=== PATIENT | male | born 1940 | race Caucasian/White ===

== ENCOUNTER 2017-07-08 07:46 | Day surgery (SDC) | payer MEDICARE, OTHER, SELFPAY ==
--- NOTE | 2017-07-08 | PATH_ITS ---
[facility] Accession Number: [id number] . 01 Material submitted: . HEPATIC FLEXURE POLYP . 02 Diagnosis: Hepatic Flexure Polyp: Tubular adenoma. MRV/07/10/2017 . 02 Electronically signed: . Aquiles Jones MD, PhD, Pathologist NPI- [id number] . 01 Gross description: . HEPATIC FLEXURE POLYP: Received in formalin is 1 fragment(s) of garcia, soft tissue measuring 0.5 x 0.4 x 0.2 cm submitted entirely in 1 cassette(s) /TRC /TRC . 02 Pathologist provided ICD-10: D12.3 . 02 CPT . 667477 Performed at: 01 [facility] [address] [facility], [place], [place] [id number] MD Artem Quevedo MD Phone: [phone] Performed at: 02 [facility] [address] [place], [place] [id number] MD Robin Harris MD Phone: [phone]
[2017-07-08] MEDS: SODIUM CHLORIDE 0.9% 1,000 ML 200 ML IV (08:30)
[2017-07-08 08:32] VITALS: BP 120/74; PULSE 78; RESP 16; TEMP 36.1; O2SAT 97
--- NOTE | 2017-07-08 09:09 | PM.HP.1 ---
History of Present Illness Chief complaint: [id number] Narrative: Gio Peace is a 76 year old male He is here for screening colonoscopy. Last colonoscopy was about 10 years ago. No family history of colon cancer. No blood in his stool. PFSH Medical History Coronary artery disease (Acute) Elevated cholesterol (Acute) Lymphoma (Acute) Surgical History History of heart artery stent (Acute) Social History Smoking Status: Former smoker Tobacco: How many years used: 8 Meds Home Medications Medication Instructions Recorded Confirmed Type [CENTRIUM SILVER MULT] 1 tabs PO Q DAY #0 09/25/12 07/08/17 History aspirin 325 mg PO QDAY #0 09/25/12 07/08/17 History atorvastatin [Lipitor] 20 mg PO HS #0 09/25/12 07/08/17 History candesartan-hydrochlorothiazid 1 tab PO QDAY #0 03/22/16 07/08/17 History levothyroxine 0.088 mg PO QDAY #0 09/10/16 07/08/17 History docusate sodium [Colace] 100 mg PO BIDP PRN #0 12/12/16 07/08/17 History gabapentin [Neurontin] 1 - 2 tab PO HSP PRN 07/08/17 07/08/17 History Generic Name Dose Route Start Last Admin Trade Name Freq PRN Reason Stop Dose Admin Flumazenil 0.2 mg 07/08/17 07:50 Romazicon IV PRN PRN Benzodiazepine Reversal Sodium Chloride 1,000 mls @ 200 mls/hr 07/08/17 08:00 07/08/17 08:30 Normal Saline 0.9% IV 200 mls/hr CONT KAVON Administration Naloxone HCl 0.2 mg 07/08/17 07:50 Narcan IV Q2MIN PRN Opiate Reversal Allergies Allergy/AdvReac Type Severity Reaction Status Date / Time adhesive tape AdvReac Unknown RASH FROM Verified 07/08/17 08:16 PAPER TAPE PAPER TAPE AdvReac Unknown RASH Uncoded 05/28/17 12:24 Review of Systems Review of Systems All systems reviewed & are unremarkable except as noted in HPI and below Musculoskeletal Comments: Chronic back pain and hip pain Exam Vital Signs (past 8 hours): Vital Signs - 8 hr 07/08/17 08:32 Temperature 96.9 F L Pulse Rate 78 Respiratory Rate 16 Blood Pressure 120/74 Pulse Oximetry 97 Pulse Oximetry 97 Oxygen Delivery Method Room Air Assessment & Plan Plan: Plan: I have discussed the procedure and the rationale with the patient including risks of bleeding, perforation which would necessitate a major operation, failure to find remove all lesions and the potential to tattoo. They appeared to understand and wished to proceed.
--- NOTE | 2017-07-08 09:14 | P.HP_ITS ---
History of Present Illness Chief complaint: [id number] Narrative: Gio Peace is a 76 year old male He is here for screening colonoscopy. Last colonoscopy was about 10 years ago. No family history of colon cancer. No blood in his stool. PFSH Medical History Coronary artery disease (Acute) Elevated cholesterol (Acute) Lymphoma (Acute) Surgical History History of heart artery stent (Acute) Social History Smoking Status: Former smoker Tobacco: How many years used: 8 Meds Home Medications Medication Instructions Recorded Confirmed Type [CENTRIUM SILVER MULT] 1 tabs PO Q DAY #0 09/25/12 07/08/17 History aspirin 325 mg PO QDAY #0 09/25/12 07/08/17 History atorvastatin [Lipitor] 20 mg PO HS #0 09/25/12 07/08/17 History candesartan-hydrochlorothiazid 1 tab PO QDAY #0 03/22/16 07/08/17 History levothyroxine 0.088 mg PO QDAY #0 09/10/16 07/08/17 History docusate sodium [Colace] 100 mg PO BIDP PRN #0 12/12/16 07/08/17 History gabapentin [Neurontin] 1 - 2 tab PO HSP PRN 07/08/17 07/08/17 History Generic Name Dose Route Start Last Admin Trade Name Freq PRN Reason Stop Dose Admin Flumazenil 0.2 mg 07/08/17 07:50 Romazicon IV PRN PRN Benzodiazepine Reversal Sodium Chloride 1,000 mls @ 200 mls/hr 07/08/17 08:00 07/08/17 08:30 Normal Saline 0.9% IV 200 mls/hr CONT KAVON Administration Naloxone HCl 0.2 mg 07/08/17 07:50 Narcan IV Q2MIN PRN Opiate Reversal Allergies Allergy/AdvReac Type Severity Reaction Status Date / Time adhesive tape AdvReac Unknown RASH FROM Verified 07/08/17 08:16 PAPER TAPE PAPER TAPE AdvReac Unknown RASH Uncoded 05/28/17 12:24 Review of Systems Review of Systems All systems reviewed & are unremarkable except as noted in HPI and below Musculoskeletal Comments: Chronic back pain and hip pain Exam Vital Signs (past 8 hours): Vital Signs - 8 hr 3 07/08/17 08:32 Temperature 96.9 F L Pulse Rate 78 Respiratory Rate 16 Blood Pressure 120/74 Pulse Oximetry 97 Pulse Oximetry 97 Oxygen Delivery Method Room Air Assessment & Plan Plan: Plan: I have discussed the procedure and the rationale with the patient including risks of bleeding, perforation which would necessitate a major operation, failure to find remove all lesions and the potential to tattoo. They appeared to understand and wished to proceed.
--- NOTE | 2017-07-08 09:14 | PM.PREOP ---
Pre-operative Note Interval Note Pre-op Check: History & Physical exam performed today H&P completed within 30 days and has changed as indicated here:: No change ASA Class (for procedural sedation): II
[2017-07-08] MEDS: fentaNYL 250 MCG/5 ML INJ IV (09:25)
[2017-07-08] MEDS: MIDAZOLAM 5 MG/5 ML VIAL IV (09:26)
--- NOTE | 2017-07-08 09:46 | PM.OP.ENDO ---
Operative Date/Time/Diagnoses - Date of procedure: 07/08/17 Time of procedure: 09:46 Pre-op diagnosis: Screening examination. Last exam 10 years ago Post-op diagnosis: same (Orta diverticulosis. One very small polyp near the hepatic flexure.) Procedure & Clinicians Study performed: Colonoscopy with cold biopsy Same procedure as scheduled: Yes Indications: Screening Surgeon: Eldon Bruce Procedure Notes SCOAP/Timeout: Perfored Procedure in detail: The patient was placed in the left lateral decubitus position and underwent IV sedation directed by the surgeon consisting of fentanyl and Versed. Digital exam was unremarkable. Prostate is small for age.. The scope was inserted and advanced through the rectum into the sigmoid, descending, transverse, and ascending colon. I noted diverticulosis most heavily in the sigmoid but scattered through the colon.. The cecum was reached after adding a stiffener and applying pressure. It was identified by the ileocecal valve and the appendiceal opening. The ileocecal valve was[the not] cannulated. The scope was gradually brought out. Polyps were found at[the hepatic flexure area. It was small and removed with biopsy forceps.]. The scope ultimately was retroflexed in the rectum. The appearance was[normal in the rectum]. The scope was removed and the patient tolerated the procedure wellThe patient was placed in the left lateral decubitus position and underwent IV sedation directed by the surgeon consisting of fentanyl and Versed. Digital exam was unremarkable. Prostate is small for age.. The scope was inserted and advanced through the rectum into the sigmoid, descending, transverse, and ascending colon. I noted diverticulosis most heavily in the sigmoid but scattered through the colon.. The cecum was reached after adding a stiffener and applying pressure. It was identified by the ileocecal valve and the appendiceal opening. The ileocecal valve was[the not] cannulated. The scope was gradually brought out. Polyps were found at[the hepatic flexure area. It was small and removed with biopsy forceps.]. The scope ultimately was retroflexed in the rectum. The appearance was[]. The scope was removed and the patient tolerated the procedure well Scope withdrawal time: Over 9 min Sedation minutes: 29 Findings: diverticulosis (Orta colonic) and polyp (One small) Specimen(s): other (Polyp) Complications: none Recommendations: Colonscopy in 5 years (Under less than this polyp is not neoplastic. Then I would recommend a 10 year follow-up.) Plan for aftercare: Prep was adequate. [place] a liquid material had to be suctioned. Follow up: as needed (Bilateral air)
[2017-07-08 09:54] VITALS: BP 106/65; PULSE 72; RESP 15; TEMP 36.7
[2017-07-08 09:57] VITALS: BP 110/74; PULSE 73; TEMP 36.4
[2017-07-08 10:08] VITALS: BP 129/71; PULSE 69; RESP 16; TEMP 36.6; O2SAT 97
--- NOTE | 2017-07-08 10:16 | SUR.PHASEII ---
pt ready to go, getting car, left in stable condition.
== END 2017-07-08 10:15 | disposition home or self-care (01) ==
PROVIDERS: Family Provider Family Medicine; PCP Family Medicine; Visit Provider Specialist
PROC: 0DJD8ZZ Inspection of Lower Intestinal Tract, Via Natural or Artificial Opening Endoscopic (ICD-10-PCS; CPT 45378; principal; 2017-07-08 08:45)
DX: Z12.11 Encounter for screening for malignant neoplasm of colon (principal); K57.30 Diverticulosis of large intestine without perforation or abscess without bleeding; D12.3 Benign neoplasm of transverse colon; I25.10 Atherosclerotic heart disease of native coronary artery without angina pectoris; E78.00 Pure hypercholesterolemia, unspecified; Z87.891 Personal history of nicotine dependence
CPT/HCPCS: 45380; 88305; 99152; 99153; J2250; J3010

== ENCOUNTER → 2017-09-04 09:30 | Outpatient (CLI) | payer MEDICARE, OTHER, SELFPAY ==
[2017-09-04 09:53] LABS: Add Manual Diff / Slide Review NO; Basophils Percent Auto 0.9 % (0-2); Eosinophils Percent Auto 5.8 % (2-4); Hematocrit 44.1 % (41-53); Hemoglobin 15.5 g/dL (13.5-17.5); Lymphocytes Percent Auto 24.6 % (25-40); Mean Corpuscular HGB Conc 35.2 % (30-36); Mean Corpuscular Hemoglobin 32.4 PG (26-34); Mean Corpuscular Volume 92.2 fL (80-100); Monocytes Percent Auto 9.9 % (3-14); Neutrophils Absolute Auto 2900 /uL (3000-5900); Neutrophils Percent Auto 58.8 % (50-75); Platelet Count 161 X10^3/uL (150-400); Red Blood Cell Count 4.78 X10^6/uL (4.5-5.9)
[2017-09-04 10:05] LABS: Alanine Aminotransferase 25 IU/L (21-72); Albumin 4.4 g/dL (3.5-5.0); Albumin Globulin Ratio 1.8 (1.0-2.8); Alkaline Phosphatase 68 U/L (38-126); Aspartate Aminotransferase 22 IU/L (17-59); BUN Creatinine Ratio 26.7 (6-22); Blood Urea Nitrogen 24 mg/dL (9-20); Calcium 9.8 mg/dL (8.4-10.2); Carbon Dioxide 29 mmol/L (22-32); Chloride 103 mmol/L (98-107); Estimated Glomerular Filt Rate > 60.0 mL/min (>60); Globulin 2.4 g/dL (1.7-4.1); Glucose 94 mg/dL (80-110); HEMOLYSIS < 15 (0-50); Sodium 141 mmol/L (137-145); Total Protein 6.8 g/dL (6.3-8.2)
--- NOTE | 2017-09-04 10:18 | DI.CT.S_ITS ---
PROCEDURE: CT CHEST ABD PEL W CON INDICATIONS: B-Cell lymphoma surveillance TECHNIQUE: After the administration of oral and intravenous contrast, 5 mm thick sections acquired from the lung apices to the symphysis. 5 mm coronal and sagittal reformats were performed, with additional 7 mm coronal MIP reformats through the lungs. For radiation dose reduction, the following was used: automated exposure control, adjustment of mA and/or kV according to patient size. COMPARISON: [facility], CT, NECK/CHEST/ABD/PEL W CONTRAST, 12/06/2016, 9:49. FINDINGS: Image quality: Excellent. CHEST: Lungs and pleura: Stable dependent atelectasis. No acute airspace opacities. No pleural effusions or pneumothorax. Central and peripheral airways appear patent and normal in caliber. Mediastinum: Heart size is normal. No pericardial effusion. No mediastinal or hilar adenopathy by size criteria. Thoracic aorta and central pulmonary arteries are normal in size. Esophagus is normal in caliber. Mild/moderate hiatal hernia. Chest wall: No axillary or supraclavicular adenopathy by size criteria. Thyroid gland is radiographically normal. ABDOMEN: Solid organs: Multiple low density hepatic nodules stable since the previous study consistent with simple cysts. Decreased hepatic density most consistent with mild fatty infiltration. The gallbladder, pancreas, and adrenal glands are normal. Minimal nodular confirmation to the spleen with stable since the previous study. No splenic masses. Stable enlargement of the right renal collecting system consistent with UPJ stenosis.. Otherwise the kidneys are normal.. Peritoneum and bowel: Bowel loops demonstrate normal wall thickness and caliber. No free fluid or air. Nodes and vessels: No retroperitoneal or mesenteric adenopathy by size criteria. Aorta and inferior vena cava are normal in size. Miscellaneous: No ventral hernias. PELVIS: Genitourinary: Mild homogeneous bladder wall thickening. Prostatic hypertrophy. Please note CT cannot effectively identify or exclude primary prostate cancer. Miscellaneous: No inguinal hernias or adenopathy. Stable mild soft tissue thickening about the left external iliac and common femoral arteries. Bones: No suspicious bony lesions. No vertebral body compression fractures. IMPRESSION: 1. No lymphadenopathy to suggest residual or recurrent malignancy. 2. Stable soft tissue thickening about the left common femoral and external iliac arteries. 3. Moderate esophageal jelena hernia. Dictated by: Erwin Hackett M.D. on 09/04/2017 at 11:35 Approved by: Erwin Hackett M.D. on 09/04/2017 at 11:45
[2017-09-04 10:40] LABS: Lactate Dehydrogenase 507 U/L (313-618)
== END ==
PROVIDERS: Family Provider Family Medicine; PCP Family Medicine; Visit Provider Nurse Practitioner Gerontology
DX: C83.30 Diffuse large B-cell lymphoma, unspecified site (principal)
CPT/HCPCS: 36415; 71260; 74177; 80053; 83615; 85025; Q9967

== ENCOUNTER → 2018-02-05 15:42 | Outpatient (CLI) | payer MEDICARE, OTHER, SELFPAY ==
--- NOTE | 2018-02-05 | DI.MRI.S_ITS ---
PROCEDURE: MR LUMBAR SPINE WO CON INDICATIONS: LUMBAR SPINE PAIN TECHNIQUE: Noncontrast sagittal T1 spin echo and T2 fast echo, sagittal STIR, coronal T2, axial T1 and T2 fast spin echo through the lumbar spine. COMPARISON: [facility], , L-SPINE 2-3 VIEWS, 05/20/2012, 9:57. FINDINGS: Image quality: Excellent. Alignment and Curvature: 5 lumbar diverticulitis are present by plain film. There is moderate rightward curvature of the mid/upper lumbar spine. There is loss of normal lumbar lordosis. There is mild grade 1 retrolisthesis of L1 on L2, L3 on L4, and L5 on S1. Bone Marrow: Marrow is of normal overall signal. No acute vertebral body compression fractures. There is severe reactive signal within the endplates adjacent to the L1-L2 and L2-L3 intervertebral discs. Moderate reactive signal within the endplates adjacent to the L4-L5 and L5-S1 intervertebral discs. Mild reactive signal within the endplates adjacent to the T12-L1 intervertebral disc. Spinal Cord: Conus medullaris terminates at the mid L1 level. Visualized cord demonstrates normal signal and size. Paraspinous Soft Tissues: No paravertebral masses. Incompletely visualized right parapelvic renal cyst measuring at least 64 mm. L1-L2: Severe disc height loss and desiccation. Moderate diffuse disc bulge. Mild bilateral facet and ligamentum flavum hypertrophy. Mild epidural lipomatosis. Severe canal stenosis. Moderate subarticular left and mild subarticular right foraminal stenosis. L2-L3: The severe disc height loss and desiccation. Mild diffuse disc bulge. Moderate bilateral facet and ligamentum hypertrophy. Mild epidural lipomatosis. Severe canal stenosis. Moderate subarticular left and mild right foraminal stenosis. L3-L4: Moderate disc desiccation. Mild disc height loss. Moderate diffuse disc bulge. Moderate bilateral facet and ligamentum flavum hypertrophy. Mild epidural lipomatosis. Severe canal stenosis. Severe subarticular left and moderate subarticular right foraminal stenosis. Flattening deformity of the left L3 nerve root within the neural foramen. L4-L5: Moderate disc height loss and desiccation. Moderate diffuse disc bulge with superimposed right far lateral broad-based protrusion. Moderate bilateral facet and ligamentum flavum hypertrophy. Mild epidural lipomatosis. Severe canal stenosis. Severe subarticular right and mild left foraminal stenosis. Flattening deformity of the right L4 nerve root within the neural foramen. L5-S1: Severe disc height loss and desiccation. Mild diffuse disc bulge with superimposed broad-based right far lateral protrusion. Moderate right and mild left facet hypertrophy. Moderate canal stenosis. Severe subarticular right and moderate subarticular left foraminal stenosis. Flattening deformity of the right L5 nerve root within the neural foramen. IMPRESSION: 1.Multilevel degenerative disc and facet disease, as well as ligamentum flavum hypertrophy and epidural lipomatosis. 2. Multilevel canal stenoses, worst at L1-L2, L2-L3, L3-L4, and L4-L5, where there are severe canal stenoses present. 3. Multilevel foraminal stenoses, worst at L3-L4 on the left, at L4-L5 on the right, and L5-S1 on the right, where there is associated intraforaminal nerve root flattening of described above. Recommend correlation with clinical symptoms to ascertain relevance of these findings. 4. Rightward curvature of the lumbar spine. Dictated by: Griselda Mckay M.D. on 02/05/2018 at 16:49 Approved by: Griselda Mckay M.D. on 02/05/2018 at 16:55
== END ==
PROVIDERS: Family Provider Family Medicine; PCP Family Medicine; Visit Provider Orthopaedic Surgery Orthopaedic Surgery of the Spine
DX: M54.5 Low back pain (principal); M48.061 Spinal stenosis, lumbar region without neurogenic claudication; M48.07 Spinal stenosis, lumbosacral region; M51.36 Other intervertebral disc degeneration, lumbar region; M51.37 Other intervertebral disc degeneration, lumbosacral region; E88.2 Lipomatosis, not elsewhere classified
CPT/HCPCS: 72148

== ENCOUNTER → 2018-02-25 09:29 | Outpatient (CLI) | payer MEDICARE, OTHER, SELFPAY ==
[2018-02-25 10:07] LABS: Add Manual Diff / Slide Review NO; Basophils Percent Auto 0.7 % (0-2); Eosinophils Percent Auto 4.5 % (2-4); Hematocrit 40.4 % (41-53); Hemoglobin 13.5 g/dL (13.5-17.5); Lymphocytes Percent Auto 21.9 % (25-40); Mean Corpuscular HGB Conc 33.5 % (30-36); Mean Corpuscular Hemoglobin 27.9 PG (26-34); Mean Corpuscular Volume 83.3 fL (80-100); Monocytes Percent Auto 9.6 % (3-14); Neutrophils Absolute Auto 3700 /uL (1500-7000); Neutrophils Percent Auto 63.3 % (50-75); Platelet Count 200 X10^3/uL (150-400); Red Blood Cell Count 4.85 X10^6/uL (4.5-5.9); Red Cell Distribution Width 14.4 % (11.6-14.8); White Blood Cell Count 5.8 X10^3/uL (4.5-11.0)
[2018-02-25 10:16] LABS: Alanine Aminotransferase 30 IU/L (21-72); Albumin 4.4 g/dL (3.5-5.0); Albumin Globulin Ratio 1.6 (1.0-2.8); Alkaline Phosphatase 71 U/L (38-126); Aspartate Aminotransferase 23 IU/L (17-59); BUN Creatinine Ratio 23.3 (6-22); Bilirubin Total 0.5 mg/dL (0.2-1.3); Blood Urea Nitrogen 21 mg/dL (9-20); Calcium 9.9 mg/dL (8.4-10.2); Carbon Dioxide 29 mmol/L (22-32); Chloride 103 mmol/L (98-107); Estimated Glomerular Filt Rate > 60.0 mL/min (>60); Globulin 2.8 g/dL (1.7-4.1); Glucose 97 mg/dL (80-110); HEMOLYSIS < 15 (0-50); Lactate Dehydrogenase 425 U/L (313-618); Potassium 4.6 mmol/L (3.4-5.1); Sodium 143 mmol/L (137-145); Total Protein 7.2 g/dL (6.3-8.2)
--- NOTE | 2018-02-25 10:28 | DI.CT.S_ITS ---
PROCEDURE: CT CHEST ABD PEL W CON INDICATIONS: surveillance TECHNIQUE: After the administration of oral and intravenous contrast, 5 mm thick sections acquired from the lung apices to the symphysis. 5 mm coronal and sagittal reformats were performed, with additional 7 mm coronal MIP reformats through the lungs. For radiation dose reduction, the following was used: automated exposure control, adjustment of mA and/or kV according to patient size. COMPARISON: [facility], CT, ABDOMEN/PELVIS WITH CONTRAST, 03/14/2016, 12:58. [place], [place], PET NECK TO MID THIGH STD, 04/11/2016, 9:01. [place], [place], PET NECK TO MID THIGH STD, 07/03/2016, 13:14. [facility], CT, NECK/CHEST/ABD/PEL W CONTRAST, 12/06/2016, 9:49. [facility], CT, CT ABD PELVIS W CON, 08/08/2016, 11:48. [facility], CT, CT CHEST ABD PEL W CON, 09/04/2017, 10:14. FINDINGS: Image quality: Excellent. CHEST: Lungs and pleura: No acute airspace opacities. There are bibasilar scars/atelectasis. No pleural effusions or pneumothorax. Central and peripheral airways appear patent and normal in caliber. Mediastinum: Heart size is normal. No pericardial effusion. No mediastinal or hilar adenopathy by size criteria. Thoracic aorta and central pulmonary arteries are normal in size. Esophagus is normal in caliber. There is a large hiatal hernia. Chest wall: No axillary or supraclavicular adenopathy by size criteria. Thyroid gland is normal. ABDOMEN: Solid organs: Multiple small hepatic hypodensities are most likely cysts. Liver is normal in size and enhancement. Gallbladder is normal. Biliary system is non dilated. Pancreas enhances normally. Spleen is normal in size and enhancement. A 1.5 cm soft tissue nodule in the splenic hilum is noted, consistent with a splenule. No adrenal nodules. There is moderate right hydronephrosis with dilated right renal pelvis consistent with right UPJ obstruction. The appearance unchanged from the last exam. Kidneys demonstrate normal size and enhancement. Peritoneum and bowel: Bowel loops demonstrate normal wall thickness and caliber. No free fluid or air. Nodes and vessels: No retroperitoneal or mesenteric adenopathy by size criteria. Mild soft tissue fullness surrounding the left external iliac and common femoral arteries appears unchanged. Aorta and inferior vena cava are normal in size. Miscellaneous: No ventral hernias. PELVIS: Genitourinary: Bladder wall thickness is normal. Prostate is enlarged. Miscellaneous: No inguinal hernias or adenopathy. Bones: No suspicious bony lesions. No vertebral body compression fractures. IMPRESSION: 1. No lymphadenopathy in thorax, abdomen or pelvis. 2. Stable soft tissue fullness about the left external iliac and common femoral arteries. 3. Large hiatal hernia. 4. Chronic right UPJ obstruction. 5. Small hepatic hypodensities are likely hepatic cysts. 6. Enlarged prostate. Dictated by: Jeff Dougherty M.D. on 02/25/2018 at 12:24 Approved by: Jeff Dougherty M.D. on 02/25/2018 at 13:20
== END ==
PROVIDERS: Family Provider Family Medicine; PCP Family Medicine; Visit Provider Internal Medicine Hematology & Oncology
DX: C83.30 Diffuse large B-cell lymphoma, unspecified site (principal); K44.9 Diaphragmatic hernia without obstruction or gangrene; N13.5 Crossing vessel and stricture of ureter without hydronephrosis; N40.0 Benign prostatic hyperplasia without lower urinary tract symptoms
CPT/HCPCS: 36415; 71260; 74177; 80053; 83615; 85025; Q9967

== ENCOUNTER 2018-07-24 06:05 | Inpatient (IN) | payer MEDICARE, OTHER, SELFPAY ==
[2018-07-15 13:38] VITALS: BMI 33.6
[2018-07-24] VITALS (20 sets, daily range): BP systolic 89–122; BP diastolic 52–91; PULSE 71–95; RESP 1–20; TEMP 35.8–36.8; O2SAT 87–99; BMI 33.6
--- NOTE | 2018-07-24 | DI.RAD.S_ITS ---
PROCEDURE: XR LUMBAR SPINE 2-3V INDICATIONS: L3-4, 4-5, 5-S1 TLIF TECHNIQUE: 3 views of the lumbar spine were acquired. COMPARISON: [facility], , SPINE 2-3 VIEWS, 05/20/2012, 9:57. FINDINGS: Spot fluoroscopic images demonstrating lumbar spinal fixation hardware from L3-sacrum with paraspinal susi and pedicle screws. There are interbody cage grafts. There is expected intraoperative alignment. The hardware appears intact Dictated by: Gerard Snyder M.D. on 07/24/2018 at 15:06 Approved by: Gerard Snyder M.D. on 07/24/2018 at 15:07
[2018-07-24] MEDS: LACTATED RINGERS 1,000 ML 42 ML IV ×2 (07:00→09:59)
--- NOTE | 2018-07-24 07:26 | SUR.PREOP ---
PT HAS 1+ PITTING EDEMA ON RIGHT LOWER LEG, 2+ PITTING EDEMA ON LEFT LEG, PT STATES THIS IS FROM HIS LYMPHOMA , HAD CHEMO AND RADIATION 2017 AND IS NOW IN REMISSION.
[2018-07-24] MEDS: fentaNYL 100 MCG/2 ML INJ 50 MCG IV (07:37)
[2018-07-24] MEDS: CEFAZOLIN 2 GM/100 ML FROZ.PIGGY IV ×3 (07:45→20:19)
--- NOTE | 2018-07-24 07:45 | PM.PREOP ---
Pre-operative Note Interval Note History & Physical reviewed/Exam performed by Physician: Yes Changes to H&P: No
--- NOTE | 2018-07-24 08:27 | SUR.OPER ---
Prone on spine table, head in foam head support, padded chest and pelvic supports, gel pad at knees, lower legs supported by pillows; nipples, genitalia and toes free of pressure, arms secured on foam padded arm boards at <90 degrees abduction. Tape over blanket at thigh secured to table.
[2018-07-24] MEDS: BUPIVACAINE 0.25% W/ EPI 30 ML VIAL INJ (08:42)
[2018-07-24] MEDS: BUPIVACAINE LIPOSOME 266 MG/20 ML VIAL INJ (08:42)
--- NOTE | 2018-07-24 13:50 | PM.OP.1 ---
Operative Date/Time/Diagnoses Date of procedure: 07/24/18 Time of procedure: 07:50 Pre-op diagnosis: 1. Lumbar scoliosis 2. Lumbar spondylolisthesis 3. Lumbar spinal stenosis L3-S1 Post-op diagnosis: same Procedure & Clinicians Procedure: 1. L3-4, L4-5, L5-S1 Postero-lateral and posterior interbody fusion 2. L3-4, L4-5, L5-S1 interbody cage placement. 3. L3-4, L4-5, L5-S1 decompressive laminectomy with bilateral facetecomies 4. L3-4, L4-5, L5-S1 Posterior segmental instrumentation 5. [place] of bone marrow from iliac crest 6. Utilization of microsurgical technique and operating microscope Same procedure as scheduled: Yes Indications: Patient has been having chronic back pain and worsening lumbar radiculopathy. Patient failed multiple conservative management with worsening pain weakness and numbness in her lower extremity. Patient has been having difficulty performing activity of daily living. After discussing risks benefits of treatment options, patient elected proceed with surgery. Surgeon: Alcides Gilmore Asbestos Abatement Technician: Felisa Mejia Click Yes if Unassisted: No Anesthesia Type: General Operative Notes Closure Type: primary Specimen(s): none sent Prosthetic devices, grafts, tissues, transplants, or devices: Globus revolve screws, Rise cages Applied: catheter Estimated Blood Loss (mL): 350 Blood products transfused: none Procedure in detail: Patient was seen in the preoperative area. Risks and benefits of the surgery was discussed with the patient. Informed consent was obtained from the patient and placed in the chart. Surgical site was marked. Patient was taken to the operative room. General anesthesia was administered. Prophylactic antibiotic was given to the patient less than 30 min before the incision was made. Patient was placed into a prone position on the Cj table. Patient's back was then prepped and draped in the sterile fashion. Time-out was performed at this time. Using AP and lateral C-arm imaging the interval between L3-S1 was identified and marked on patient's back. A 3 inch incision 2 in from midline was made on the right side first. The fascia was incised in line with skin incision. Globus MARS retractors was placed inside the incision and docked onto the L3, L4 and L5 lamina. Using microsurgical technique and operating microscope, a L3, L4 and L5 laminectomy and L3-4, L4-5 L5-S1 facetectomy was performed using a Kerrison rongeur. The disc space at L3-4, L4-5, L5-S1 was identified. And a total diskectomy was performed at L3-4, L4-5, L5-S1 level. The endplates were decorticated using a rasp and shaver. The total diskectomy and decortication was performed at L3-4, L4-5, L5-S1 level in order to to accomplish a L3-4, L4-5, L5-S1 fusion. The local bone from the laminectomy and facetectomy was saved for local bone grafting. After the total diskectomy and decortication was completed, Bio4 bone graft material was combined with local bone that was harvested earlier. At this time, a separate skin is incision was made over the iliac crest. A Jamshidi needle was inserted into the iliac crest through a separate skin incision. 5 cc of bone marrow aspiration was obtained through the separate skin incision using a Jamshidi needle from the iliac crest. The bone marrow aspiration was combined with local bone and the Bio4 bone grafting material. The bone grafting material was placed into the L3-4, L4-5, L5-S1 interbody space along with three cages, one expandable cage at each level. The cages were expanded to their maximum height using the torque limiting screwdriver. At this time a mirror image incision was made on the left side. The fascia was incised in line with the skin incision. Globus MARS retractor was inserted and docked onto the L3-4, L4-5, L5-S1 posterolateral gutter. Using the power drill, posterior-lateral decortication was performed at L3-4, L4-5, L5-S1 level until bleeding cortical bone was identified. The remaining bone grafting material was placed into the L3-4, L4-5 L5-S1 posterior lateral gutter he order to accomplish posterolateral fusion at the L3-4, L4-5 L5-S1 levels. Using the double C-arm technique, pedicle screws were placed into the L3, L4, L5, S1 pedicles bilaterally. This was done by placing the Jamshidi needle into the pedicles, then placing the guidewires over the Jamshidi needle, and finally placing the cannulated screws over the guidewires bilaterally. After the pedicle screws were placed, 2 titanium rods was locked into the heads of the pedicle screws using locking caps and torque limiting screwdriver. Total 8 pedicles screws were placed. The pedicle screws were also tested using neuromonitoring probe and they were well positioned and above allowed threshhold. After all the hardware was placed, and confirmed with AP and lateral C-arm imaging, the wound was then irrigated with sterile normal saline and packed with Ray-Pepe gauze for 3 min to accomplish hemostasis. After the gauze was removed the deep fascia was closed with #1 Vicryl suture. The subcutaneous layer was closed with 2-0 Vicryl. The skin was closed with skin nunu. Patient tolerated the procedure well. There were no complications. Complications: none Condition: stable Disposition: PACU Plan for aftercare: Admit to inpatient hospital
--- NOTE | 2018-07-24 14:32 | SUR.PHASEI ---
Pt moaning, opening eyes and moving all extremities independently. Not answering questions.
[2018-07-24] MEDS: HYDROMORPHONE 2 MG INJ 0.5 MG IV ×4 (14:36→15:19)
[2018-07-24] MEDS: hydrOXYzine 50 MG/ML INJ 25 MG IM (14:40)
--- NOTE | 2018-07-24 15:41 | SUR.PHASEI ---
Dr. Min notified regarding pt apnea while dozing, sats drop to mid 80s. VVO for RT eval and treat for possible sleep apnea. Jitendra in RT notified. Report called to Daniel.
--- NOTE | 2018-07-24 16:03 | SUR.PHASEI ---
Pt transferred to the floor on o2 and with o2 monitor, with glasses and belongings bag. IV saline locked. DRSG checked with RN. BLE weak but LLE stronger than RLE. VS stable. Report to Daniel
--- NOTE | 2018-07-24 16:35 | PT.IPTN ---
Current Diagnoses Other secondary scoliosis, lumbar region (07/24/18) Spondylolisthesis, lumbar region (07/24/18) Spinal stenosis, lumbar region without neurogenic claudication (07/24/18) Surgery Performed Operation Date: 07/24/18 07:45 Actual Procedures p L3-4, L4-5, L5-S1 TLIF w/Posterior Instru. - Alcides Gilmore MD Physical Therapy Treatment Note M3 PT-IP Subjective Start: 07/24/18 16:33 Freq: NEEDED Status: Active Protocol: Document 07/24/18 16:33 AB (Rec: 07/24/18 16:35 AB [id number]) Subjective Physical Therapy Visit Type Notes talked to nurse and stated that pt just came up to the acute floor and is very sleepy . checked on pt. family in room. pt falling asleep while PT is talking to him and spouse agreed that it is better to do PT tomorrow.
[2018-07-24] MEDS: SODIUM CHLORIDE 0.9% 1,000 ML 100 ML IV (17:09)
[2018-07-24] MEDS: ATORVASTATIN 20 MG TABLET PO (20:18)
[2018-07-24] MEDS: OXYCODONE IR 10 MG TABLET PO (20:18)
[2018-07-24] MEDS: DOCUSATE 100 MG CAPSULE PO (20:18)
[2018-07-24] MEDS: GABAPENTIN 300 MG CAPSULE PO (20:18)
[2018-07-24] MEDS: SENNOSIDES 8.6 MG TABLET 17.2 MG PO (20:19)
[2018-07-25] VITALS (8 sets, daily range): BP systolic 92–143; BP diastolic 52–70; PULSE 82–88; RESP 16–20; TEMP 36.3–37.3; O2SAT 94–100
[2018-07-25] MEDS: CEFAZOLIN 2 GM/100 ML FROZ.PIGGY IV (03:35)
[2018-07-25] MEDS: SODIUM CHLORIDE 0.9% 1,000 ML 100 ML IV (03:35)
[2018-07-25] MEDS: LEVOTHYROXINE 88 MCG TABLET PO (05:18)
[2018-07-25 05:27] LABS: Hematocrit 30.8 % (41-53)
[2018-07-25] MEDS: hydrOXYzine pamoate 25 MG CAPSULE PO ×3 (07:25→20:25)
[2018-07-25] MEDS: HYDROMORPHONE 0.5 MG INJ IV (07:25)
--- NOTE | 2018-07-25 09:47 | PM.PNPO.1 ---
Subjective Date Patient Seen: 07/25/18 Time Patient Seen: 09:48 Interval history: Patient is POD#1 s/p TLIF. He reports minimal pain while lying in bed but quickly becomes severe with movement. He has not yet mobilized with PT. Urinary catheter in place. Denies chest pain, shortness of breath. Exam Vital Signs (past 8 hours): - 07/25/18 04:09 07/25/18 07:20 07/25/18 09:07 Temperature 97.5 F L 97.4 F L Pulse Rate 84 87 Respiratory Rate 19 16 Blood Pressure 108/61 115/65 Pulse Oximetry 98 100 98 07/25/18 09:08 Temperature Pulse Rate Respiratory Rate Blood Pressure Pulse Oximetry 95 Oxygen Delivery Method Room Air Oxygen Flow Rate 2 Narrative Exam Narrative: Pleasant 77 year old male resting comfortably in bed in no acute distress. Alert and oriented. Dressing in place over lumbar spine is clean, dry, and intact with no shadow drainage. Intact motor and sensation to light touch in distal extremities. Good capillary refill. Objective Labs Result Diagrams: 07/25/18 04:57 Labs: Laboratory Results - last 24 hr 07/25/18 04:57 Hgb 10.0 L Hct 30.8 L Assessment & Plan Post-op Postoperative Procedures Operation Date: 07/24/18 07:45 Actual Procedures Side Surgeon p L3-4, L4-5, L5-S1 TLIF w/Posterior Instru. Alcides Gilmore MD Patient doing well post operatively. Goals for today are to mobilize with PT and to have more consistent pain control. Added oxycodone 5mg for moderate pain to better meet pain control goals and recommend to patient to take medication when pain is moderate. Possible d/c catheter today if he is able to mobilize with PT, otherwise will remove tomorrow. Quality VTE Deep Vein Thrombosis/Pulmonary Embolism Present on Admission: No
[2018-07-25] MEDS: OXYCODONE IR 10 MG TABLET PO ×3 (09:52→20:22)
[2018-07-25] MEDS: DOCUSATE 100 MG CAPSULE PO ×2 (09:55→20:23)
--- NOTE | 2018-07-25 11:10 | PT.IIE ---
Current Diagnoses Other secondary scoliosis, lumbar region (07/24/18) Spondylolisthesis, lumbar region (07/24/18) Spinal stenosis, lumbar region without neurogenic claudication (07/24/18) Surgery Performed Operation Date: 07/24/18 07:45 Actual Procedures p L3-4, L4-5, L5-S1 TLIF w/Posterior Instru. - Alcides Gilmore MD Surgical History (Last Updated 07/16/18 @ 09:35 by Radha Rayo, RN) History of colonoscopy (Acute) Hx of tonsillectomy (Acute) History of heart artery stent (Acute ~12/2004) Medical History (Last Updated 07/15/18 @ 14:16 by Radha Rayo RN) Back pain (Acute) Former smoker (Acute) [place] (hard of hearing) (Acute) Hypothyroid (Acute) Left leg swelling (Acute) Myocardial infarction (Acute ~12/2004) Numbness (Acute) RLS (restless legs syndrome) (Acute) Sciatica (Acute) Coronary artery disease (Acute) Elevated cholesterol (Acute) Lymphoma (Acute ~02/2016) Physical Therapy Inpatient Evaluation/Re-Eval M1 PT/OT-IP Prior Functional Status Start: 07/24/18 16:33 Freq: NEEDED Status: Active Protocol: Document 07/25/18 11:10 RCC (Rec: 07/25/18 11:58 [facility] [id number]) Medical Review Prior Functional Status Medical History Reviewed Yes Mobility and Gait mod indep gait without device Activities of Daily Living and IADL's mod indep I/ADLs Social History Household Members spouse Living Arrangements House Number of Floors (Floors) One Floor Number of Stairs To Enter/Railing? 2 SE L ascending rail Home Environment Walk in Shower Home Equipment Four Wheel Walker Grab Bars Near Toilet Grab Bars In Shower Additional Social History Comment Pt underwent L3-4, L4-5, L5-S1 TLIF 07/24/18 M2 PT-IP Current Condition Start: 07/24/18 16:33 Freq: NEEDED Status: Active Protocol: Document 07/25/18 11:10 RCC (Rec: 07/25/18 11:58 [facility] [id number]) Physical Therapy Current Condition Current Condition Evaluation Date 07/25/18 Treatment Diagnosis L3-4, L4-5, L5-S1 TLIF 07/24/18, impaired activity tolerance and mobility Precautions Lumbar Precautions Log Roll No Twisting Limit Bending Lifting Restriction of 10 lbs Gait Belt above Incisional Area M3 PT-IP Subjective Start: 07/24/18 16:33 Freq: NEEDED Status: Active Protocol: Document 07/25/18 11:10 [facility] (Rec: 07/25/18 11:58 [facility] [id number]) Subjective Physical Therapy Visit Type Type Initial Evaluation Visit Start Time 11:10 Visit Stop Time 11:35 Total Visit Minutes 25 Number of PATTERN FITTER Visits 0 Physical Therapy Visit Comments Patient Comments Pt feeling better after pain medication and laying on his side Patient Goals he wants to get his pain under control Therapy Pain Assessment Pain When Pain Assessed At Rest Pain Present Pain Present Pain Reported Location Lower Back Intensity 4 Scale Used Numeric (1 - 10) M4 PT-IP Mobility and Gait Start: 07/24/18 16:33 Freq: NEEDED Status: Active Protocol: Document 07/25/18 11:10 [facility] (Rec: 07/25/18 11:58 [facility] [id number]) PT-Bed Mobility Assessment Rolling Type of Rolling Log Rolling Level of Assist Minimal Assistance Supine to Sit Supine to Sit Minimal Assistance Scooting Scooting to Edge of Bed Contact Guard Assistance PT-Transfer Assessment Sit to and From Stand Sit to and from Stand Contact Guard Assistance 1 Person Assistance Use of Upper Extremities Equipment Transfer Assistive Device Gait Belt Front Wheeled Walker Transfers Transfer Destination Chair Transfer Technique Stand Step Pivot Transfer Ability Level of Assist Contact Guard Assistance Gait Assessment Gait Gait Assistance Required: Contact Guard Assist Distance (Feet) 25 Assistive Devices Assistive Device Gait Belt Front Wheeled Walker Gait Deviations General Gait Pattern Antalgic Decreased Stride Length Decreased Feet Clearance Factors Limiting Gait Function Factors Limiting Gait Function Decreased Activity Tolerance Decreased Sensation Decreased Strength Pain Poor Balance PT-Balance Assessment Sitting Balance and Reactions Static Sitting Balance Ability Good Dynamic Sitting Balance Ability Good Standing Balance and Reactions Static Standing Balance Ability Fair Dynamic Standing Balance Ability Fair Device Used FWW M5 PT-IP Objective Assessments Start: 07/24/18 16:33 Freq: NEEDED Status: Active Protocol: Document 07/25/18 11:10 [facility] (Rec: 07/25/18 11:58 [facility] [id number]) Orientation Orientation/Cognition Level of Alertness Alert Orientation Name Age Birthday Month Date Year Day of Week Place Situation Gross Range of Motion Lower Extremity ROM Assessment Within Functional Limits Strength Lower Extremity Strength Ankle DF 5/5 B Coordination Assessment Gross Coordination Gross Coordination WNL Sensation Assessment Sensation Gross Sensation Right LE Impaired Left LE Impaired Comments Sensation Comments pt reports numbness B lower legs and feet d/t CA treatment per pt M6 PT-IP Treatment Start: 07/24/18 16:33 Freq: NEEDED Status: Active Protocol: Document 07/25/18 11:10 RCC (Rec: 07/25/18 11:58 [facility] [id number]) Physical Therapy Treatment Exercises Exercises Ankle Pumps Education Education Provided Precautions Post-Op Packet Safety M7 PT-IP Assessment and Plan Start: 07/24/18 16:33 Freq: NEEDED Status: Active Protocol: Document 07/25/18 11:10 RCC (Rec: 07/25/18 11:58 [facility] [id number]) PT Summary Assessment and Plan Potential Rehabilitation Potential Good Status of Condition at Evaluation Stable Summary Impairments Pain Strength Balance Sensation Bed Mobility Transfers Gait Activity Tolerance Assessment Summary POD #1 TLIF. Pt able to ambulate in room without loss of balance x25 ft. He had decrease in pain in standing compared to in bed. Overall, pt is not yet safe to return home, but if he continues to progress he potentially could d/c once he meets the established goals. Expect pt to be able to return home when medically stable, with assistance from family. Goals Bed Mobility Goal Standby Assistance Transfer Goal Standby Assistance Gait Goal Standby Assistance Gait Distance 150 Other Goals up/down 2 steps with L ascending Days to Meet Goals 5 Frequency of Treatment Frequency Of Treatment Twice a Day Treatment Plan Physical Therapy Treatment Plan Bed Mobility Training Transfer Training Gait Training Balance Retraining Post Op Education Discharge Planning Hot or Cold Pack Neuromuscular Re-ed Other Recommendations and Next Treatment log roll, review precautions, Focus progress gait Recommendations To Nursing Amount of Assist Needed 1 Person Assist Discharge Recommendations PT Discharge Recommendations Home with Assistance Equipment Needed for Home Before may need FWW if 4WW not Discharge appropriate
--- NOTE | 2018-07-25 11:32 | CM.DANOTE ---
DCP/Assessment: Reviewed chart. Patient is a 77yr old male admitted to [facility] for spinal fusion performed on 07-24-[address] Gilmore. PCP is Dr. Mcadams. Primary payor is 1)Medicare 2)[facility]. Met with patient explained CM/SW role. Patient resting comfortably in bed, alert and oriented. Patient reports that he plans to d/c home when medically stable. Patient resides with spouse/Jeanie and has additional family coming to assist from out of town for a few weeks. Patient currently with therapy evaluation pending. Prior to admit patient completely I in all ADL's. Patient has both cane/walker at home. P: Anticipate home when stable. ABIGAIL Kuhn Discharge Planning/Care Management CM Discharge Assessment Start: 07/25/18 11:29 Freq: Status: Active Protocol: Document 07/25/18 11:29 KJS (Rec: 07/25/18 11:32 KJS [id number]) Discharge Planning Assessment Assigned Information Security Officer ABIGAIL Kuhn Advance Directives? Yes: Advanced Directive, Durable Power of Manager Policy History Provided By Patient Medical Record Prior Living Arrangements House Household Members spouse Type of transporation used prior to Drives own vehicle admit Independent with ADL's Yes Is patient alert and oriented? Yes Caregiver for Another No DME Already Rented / Owned FWW / Walker Cane Barriers to Discharge No Discharge Plan Home Transportation Arrangement Family to provide transport when medically stable. Additional Comment Therapy evaluation pending. Whiteboard Updated in Patient Room with Yes name and ext. # of Information Security Officer Review Status In Process Next Review Type Continued Stay Review Pre-Anesthesia Assessment Start: 07/15/18 13:38 Freq: Status: Complete Protocol: Document 07/15/18 13:38 CAB (Rec: 07/15/18 15:02 CAB [id number]) Pre-Anesthesia Assessment Patient Also Known As (AKA) Rich Patient Information Reviewed Via Phone Assessment Assessment Completed With Patient Diagnostic Results BMP/CMP CBC EKG Comment Outside labs/EKG scanned to record Primary Care Provider Aung Mcadams Seen Specialist in Last 12 Months Yes Specialist Seen Call Or Contact Centre Coach Oncologist Orthopedist Primary Language Chinese Farm Service Adviser Required No Height 182.88 cm Weight 112.491 kg Body Mass Index (BMI) 33.6 Hearing Ability Hard of Hearing Use of Hearing Aid Visual Assist Glasses Dentition Type Teeth, Natural Present Barriers to Learning None Other Aids No Hx Anesthesia Reactions No Hx Family Anesthesia Reaction No Hx Malignant Hyperthermia No Hx Blood Transfusions No Anesthesia Review Requested Yes: Surgeon requested re: Cardiac Ward Assistant No alcohol intake current alcohol intake frequency 0-2 drinks per day Smoking Status Former smoker Tobacco type cigarettes how long ago did patient quit smoking Quit 1966 Substance Use Type does not use Pain Present Pain Reported Musculoskeletal Symptoms Abnormal Gait Back Pain Difficulty Walking Limited Range of Motion Muscle Cramps Muscle Weakness Numbness History of Falling (Recent or History of No ) Patient is completely paralyzed or No completely immobile Mental Status Oriented to own ability Is patient on oxygen? No Does patient have ORELLANA/SOB No Hx Sleep Apnea No CPAP/BIPAP use not prescribed Currently Taking a Beta Madeleine No Hx Chest Pain No Hx SOB No Hx Syncope or Dizziness No Anti-Coagulant Therapy Yes: Aspirin 325mg daily for stent Has a Call Or Contact Centre Coach Yes: Dr. Fagan - pre-op Cardiac Testing No Hx Pacemaker/ICD No Pacemaker Rep Required? No Cardiac Clearance Received Yes Comment Cardiac records scanned to record Diet Type At Home Regular dysphagia No Bladder Pattern Nocturia Urinary Catheter Present No Hx Urinary Self Catheterization No Diabetes No Hx Drug Resistant Organism No Presence of External or Internal Medical Yes: Cardiac stent, hearing Devices aids Have you traveled outside the [facility] in the last 30 days? Comment [place] 05/2017 Marital Status Lives With spouse Prior Living Arrangements House Number of Floors (Floors) One Floor Support System Spouse Does the Patient Have Assistance After Yes Surgery Patient Discharge Plan Description Return Home Comment Pt advised 2-3 day length of stay per surgeon's office Feels Safe in Current Environment Yes Been Physically Hurt or Threatened By a No Person in Current Environment Do you have thoughts of harming yourself None or others? Are you currently considering suicide? No Do you have a plan to hurt yourself or No Plan others? Do You Have Any Spiritual Beliefs That No May Affect Your HC Choices? Do You Have Any Cultural Practices That No May Affect Your HC Choices? Spiritual Referral In-House Artificial Breeding Technician Comment [employer] Who Can We Speak to About Patient's Care Family, friends Identifying Code for Release of Patient Declines to issue Information Health Care Proxy/Next of Kin Jeanie () Health Care Proxy Emergency Contact Name Jeanie () Emergency Contact Advance Directives? Yes: Advanced Directive, Durable Power of Manager Policy Power of Manager Policy Yes Power of Manager Policy Name Mary Kobi Power of Manager Policy PAC Instructions Durable medical equipment Medications to take/avoid Nasal antibiotic No ETOH/petroleum product on skin DOS NPO Post-op transportation Pre-surgical wash Sensory aids Sturdy shoes/comfortable clothes Do not bring valuables and remove jewelry
--- NOTE | 2018-07-25 12:39 | PC.NURSE ---
Addendum entered by Gissell Mast R.N. 07/25/18 13:27: Ambulating in halls with PT. Family brought in personal walker. Original Note: AM Shift pt AOx4, pleasant and receptive to care. [place] draining to gravity, NS infusion at 100/hr. pt removed from continuous pulse ox and capnography at 1000 per protocol and okayed by RT. O2 95% RA, all other VS stable, hypoactive bowel tones, but hasn't ate since night. Reported a 2/10 pain at start of shift, increased to 9/10 quickly and administered Dilaudid 0.5mg IV AT 0723. Pain decreased, but held at 5/10 and administered 10mg oxycodone at 0950 knowing PT would be working with pt for the first time. pain currently around 4/10. Up 1PA-FWW with PT. Verbal orders from REGAN Adam to remove [place] once pt is up and tolerating ambulation; will continue to monitor pain with transfer in hopes to remove this shift, or will relay to evening shift. LLE edema at baseline from 2017 lymphoma/lymphectomy.
--- NOTE | 2018-07-25 13:10 | PT.IPTN ---
Current Diagnoses Other secondary scoliosis, lumbar region (07/24/18) Spondylolisthesis, lumbar region (07/24/18) Spinal stenosis, lumbar region without neurogenic claudication (07/24/18) Surgery Performed Operation Date: 07/24/18 07:45 Actual Procedures p L3-4, L4-5, L5-S1 TLIF w/Posterior Instru. - Alcides Gilmore MD Physical Therapy Treatment Note M2 PT-IP Current Condition Start: 07/24/18 16:33 Freq: NEEDED Status: Active Protocol: Document 07/25/18 11:10 [facility] (Rec: 07/25/18 11:58 [facility] [id number]) Physical Therapy Current Condition Current Condition Evaluation Date 07/25/18 Treatment Diagnosis L3-4, L4-5, L5-S1 TLIF 07/24/18, impaired activity tolerance and mobility Precautions Lumbar Precautions Log Roll No Twisting Limit Bending Lifting Restriction of 10 lbs Gait Belt above Incisional Area M3 PT-IP Subjective Start: 07/24/18 16:33 Freq: NEEDED Status: Active Protocol: Document 07/25/18 13:10 [facility] (Rec: 07/25/18 14:43 [facility] [id number]) Subjective Physical Therapy Visit Type Type Treatment Note Visit Start Time 13:10 Visit Stop Time 13:25 Total Visit Minutes 15 Number of STENCIL INSPECTOR Visits 0 Physical Therapy Visit Comments Patient Comments family brought in pt's 4WW M4 PT-IP Mobility and Gait Start: 07/24/18 16:33 Freq: NEEDED Status: Active Protocol: Document 07/25/18 13:10 [facility] (Rec: 07/25/18 14:43 [facility] [id number]) PT-Transfer Assessment Sit to and From Stand Sit to and from Stand Contact Guard Assistance Equipment Transfer Assistive Device Gait Belt 4 Wheeled Walker Transfers Transfer Destination Chair Transfer Technique Stand Step Pivot Transfer Ability Level of Assist Contact Guard Assistance Gait Assessment Gait Gait Assistance Required: Contact Guard Assist Distance (Feet) 75 Assistive Devices Assistive Device Gait Belt 4 Wheeled Walker Gait Deviations General Gait Pattern Antalgic Decreased Stride Length Decreased Feet Clearance Factors Limiting Gait Function Factors Limiting Gait Function Decreased Activity Tolerance Decreased Sensation Pain M5 PT-IP Objective Assessments Start: 07/24/18 16:33 Freq: NEEDED Status: Active Protocol: Document 07/25/18 11:10 [facility] (Rec: 07/25/18 11:58 [facility] [id number]) Orientation Orientation/Cognition Level of Alertness Alert Orientation Name Age Birthday Month Date Year Day of Week Place Situation Gross Range of Motion Lower Extremity ROM Assessment Within Functional Limits Strength Lower Extremity Strength Ankle DF 5/5 B Coordination Assessment Gross Coordination Gross Coordination WNL Sensation Assessment Sensation Gross Sensation Right LE Impaired Left LE Impaired Comments Sensation Comments pt reports numbness B lower legs and feet d/t CA treatment per pt M6 PT-IP Treatment Start: 07/24/18 16:33 Freq: NEEDED Status: Active Protocol: Document 07/25/18 13:10 [facility] (Rec: 07/25/18 14:43 [facility] [id number]) Physical Therapy Treatment Exercises Exercises Ankle Pumps Education Education Provided Precautions M7 PT-IP Assessment and Plan Start: 07/24/18 16:33 Freq: NEEDED Status: Active Protocol: Document 07/25/18 13:10 [facility] (Rec: 07/25/18 14:43 [facility] [id number]) PT Summary Assessment and Plan Summary Assessment Summary POD #1 TLIF. Pt able to progress his gait distance and does appear to be safe to use his 4WW for gait upon d/c (he demonstrated good safety awareness and posture without stooping). Pt will need to improve upon his log roll and perform stair training prior to d/c. Goals Bed Mobility Goal Standby Assistance Transfer Goal Standby Assistance Gait Goal Standby Assistance Gait Distance 150 Other Goals up/down 2 steps with L ascending Days to Meet Goals 5 Frequency of Treatment Frequency Of Treatment Twice a Day Treatment Plan Other Recommendations and Next Treatment log roll, stairs Focus Recommendations To Nursing Amount of Assist Needed 1 Person Assist Discharge Recommendations PT Discharge Recommendations Home with Assistance Equipment Needed for Home Before okay to use 4WW at home Discharge
--- NOTE | 2018-07-25 17:12 | PC.NURSE ---
Addendum entered by Munira Yates R.N. 07/25/18 23:39: 16 fr honeycutt inserted without difficulty. Immediate return eduardo colored urine. Addendum entered by Munira Yates R.N. 07/25/18 22:32: SEWING MACHINE ASSEMBLER assists pt back into bed. Bladder scanned for 532 cc's and pt reports unable to void. Notified Dr. Taveras via telephone and received order to re-insert honeycutt catheter. Pt was informed. Addendum entered by Munira Yates R.N. 07/25/18 20:32: Pt requests assistance into bathroom to attempt void. Distal aspect of coversite dressings to back are rolling up; incisions still covered. Reinforced with single coversite dressing. Pt unable to void in bathroom. Bladder scanned for 220 cc/s. Encourage oral fluids and continue to monitor. Held evening bp meds for bp 104/68 with hr 88. Pt informed. Medicated for back/incisional pain associated with movement. Addendum entered by Munira Yates R.N. 07/25/18 17:28: Pt now has visitors in room. Remains up in recliner and reports pain meds are beginning to take effect. Verbally engaged with visitors. Good appetite for evening meal. Original Note: Pt awake, alert up in chair @ beginning of shift. Honeycutt catheter dc'd as per pt request. Urinal provideed and encouraged pt to call for staff assistance when needing/desiring out of chair. Medicated for back pain 6/10 as per emar. Taking diet well. Admits to full sensation to BL LE's. Pt reports h/o lymphoma to LLE and edema is baseline.
[2018-07-25] MEDS: ATORVASTATIN 20 MG TABLET PO (20:23)
[2018-07-25] MEDS: GABAPENTIN 300 MG CAPSULE PO (20:23)
[2018-07-25] MEDS: SENNOSIDES 8.6 MG TABLET 17.2 MG PO (20:24)
[2018-07-25] MEDS: MULTIVIT,CALC,MINS/IRON/FOLIC 1 TABLET 1 TAB PO (20:25)
[2018-07-25] MEDS: SODIUM CHLORIDE 0.9% FLUSH 10 ML IV (20:29)
[2018-07-26] VITALS (8 sets, daily range): BP systolic 86–133; BP diastolic 48–65; PULSE 81–106; RESP 12–18; TEMP 36.5–37.5; O2SAT 93–98
[2018-07-26] MEDS: OXYCODONE IR 10 MG TABLET PO (01:53)
[2018-07-26] MEDS: hydrOXYzine pamoate 25 MG CAPSULE PO (05:11)
[2018-07-26] MEDS: LEVOTHYROXINE 88 MCG TABLET PO (05:17)
[2018-07-26] MEDS: SODIUM CHLORIDE 0.9% FLUSH 10 ML IV ×4 (06:09→21:02)
[2018-07-26] MEDS: SODIUM CHLORIDE 0.9% 500 ML 1000 ML IV (06:10)
--- NOTE | 2018-07-26 06:49 | PC.NURSE ---
0600 Dr. Perez notified that pt. was hypotensive B/P 90/ & 86/52 second checked. Order received to bolus with 500 cc NS. Bolus completed & B/P now is 102/48. Declined pain medication @ this time, will cont. to monitor.
--- NOTE | 2018-07-26 09:35 | PM.PNPO.1 ---
Subjective Date Patient Seen: 07/26/18 Time Patient Seen: 09:35 Interval history: 77-year-old gentleman postoperative day [address] Gilmore. Patient doing well this morning. 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 His blood pressures been stable since that isolated incident. Throughout his postoperative course he has had 2 other episodes of hypotension. Rest of his vitals have been stable throughout. Patient has good pain control while laying in bed. Does state that he still gets quite a bit of pain when he tries to move or get out of bed. Due to difficulty urinating on his own his [place] had to be replaced. That will be removed later today Exam Vital Signs (past 8 hours): - 07/26/18 06:08 07/26/18 06:47 07/26/18 07:25 Temperature 98.1 F 97.7 F Pulse Rate 86 81 105 H Respiratory Rate 12 18 Blood Pressure 86/52 L 102/48 L 109/65 Pulse Oximetry 95 98 Oxygen Delivery Method Room Air Oxygen Flow Rate 2 Narrative Exam Narrative: On physical exam, patient is alert and oriented x3. No apparent distress. Patient's dressing is clean, dry, and intact. Positive dorsiflexion plantar flexion of the toes and ankle. 5/5 strength in extensor hallucis longus. Palpable pedal pulses as well as brisk cap refill. Nontender to palpation to bilateral calves. Objective Labs Result Diagrams: 07/25/18 04:57 Assessment & Plan Post-op Postoperative Procedures Operation Date: 07/24/18 07:45 Actual Procedures Side Surgeon p L3-4, L4-5, L5-S1 TLIF w/Posterior Instru. Alcides Gilmore MD Postoperative day: 2 Postoperative status: doing well Postoperative status narrative: Patient is slowly making improvements after spinal surgery on the . We will continue with physical therapy and mobilizing the patient. Will also continue to monitor his blood pressure. Plan on discharge home tomorrow. Postoperative plan: routine post-op care Time Spent With Patient less than 15 minutes Quality VTE Deep Vein Thrombosis/Pulmonary Embolism Present on Admission: No
--- NOTE | 2018-07-26 09:40 | P.PN_ITS ---
Subjective Date Patient Seen: 07/26/18 Time Patient Seen: 09:35 Interval history: 77-year-old gentleman postoperative day [address] Gilmore. Patient doing well this morning. 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 His blood pressures been stable since that isolated incident. Throughout his postoperative course he has had 2 other episodes of hypotension. Rest of his vitals have been stable throughout. Patient has good pain control while laying in bed. Does state that he still gets quite a bit of pain when he tries to move or get out of bed. Due to difficulty urinating on his own his [place] had to be replaced. That will be removed later today Exam Vital Signs (past 8 hours): - 07/26/18 06:08 07/26/18 06:47 07/26/18 07:25 Temperature 98.1 F 97.7 F Pulse Rate 86 81 105 H Respiratory Rate 12 18 Blood Pressure 86/52 L 102/48 L 109/65 Pulse Oximetry 95 98 Oxygen Delivery Method Room Air Oxygen Flow Rate 2 Narrative Exam Narrative: On physical exam, patient is alert and oriented x3. No apparent distress. Patient's dressing is clean, dry, and intact. Positive dorsiflexion plantar flexion of the toes and ankle. 5/5 strength in extensor hallucis longu s. Palpable pedal pulses as well as brisk cap refill. Nontender to palpation to bilateral calves. Objective Labs Result Diagrams: 07/25/18 04:57 Assessment & Plan Post-op Postoperative Procedures Operation Date: 07/24/18 07:45 Actual Procedures Side Surgeon p L3-4, L4-5, L5-S1 TLIF w/Posterior Instru. Alcides Gilmore MD Postoperative day: 2 Postoperative status: doing well Postoperative status narrative: Patient is slowly making improvements after spinal surgery on the . We will continue with physical therapy and mobilizing the patient. Will also continue to monitor his blood pressure. Plan on discharge home tomorrow. Postoperative plan: routine post-op care Time Spent With Patient less than 15 minutes Quality VTE Deep Vein Thrombosis/Pulmonary Embolism Present on Admission: No
[2018-07-26] MEDS: DOCUSATE 100 MG CAPSULE PO ×2 (10:14→21:01)
[2018-07-26] MEDS: OXYCODONE IR 5 MG TABLET PO ×5 (10:14→21:00)
--- NOTE | 2018-07-26 10:15 | PT.IPTN ---
Current Diagnoses Other secondary scoliosis, lumbar region (07/24/18) Spondylolisthesis, lumbar region (07/24/18) Spinal stenosis, lumbar region without neurogenic claudication (07/24/18) Surgery Performed Operation Date: 07/24/18 07:45 Actual Procedures p L3-4, L4-5, L5-S1 TLIF w/Posterior Instru. - Alcides Gilmore MD Physical Therapy Treatment Note M2 PT-IP Current Condition Start: 07/24/18 16:33 Freq: NEEDED Status: Active Protocol: Document 07/25/18 11:10 [facility] (Rec: 07/25/18 11:58 [facility] [id number]) Physical Therapy Current Condition Current Condition Evaluation Date 07/25/18 Treatment Diagnosis L3-4, L4-5, L5-S1 TLIF 07/24/18, impaired activity tolerance and mobility Precautions Lumbar Precautions Log Roll No Twisting Limit Bending Lifting Restriction of 10 lbs Gait Belt above Incisional Area M3 PT-IP Subjective Start: 07/24/18 16:33 Freq: NEEDED Status: Active Protocol: Document 07/26/18 10:15 [facility] (Rec: 07/26/18 10:41 [facility] [id number]) Subjective Physical Therapy Visit Type Type Treatment Note Visit Start Time 10:15 Visit Stop Time 10:35 Total Visit Minutes 20 Number of LDR RN Visits 0 Physical Therapy Visit Comments Patient Comments pt reports that he feels better after walking. M4 PT-IP Mobility and Gait Start: 07/24/18 16:33 Freq: NEEDED Status: Active Protocol: Document 07/26/18 10:15 [facility] (Rec: 07/26/18 10:41 [facility] [id number]) PT-Bed Mobility Assessment Rolling Type of Rolling Log Rolling Level of Assist Standby Assistance Contact Guard Assistance Supine to Sit Supine to Sit Contact Guard Assistance Scooting Scooting to Edge of Bed Standby Assistance PT-Transfer Assessment Sit to and From Stand Sit to and from Stand Contact Guard Assistance Equipment Transfer Assistive Device Gait Belt 4 Wheeled Walker Transfers Transfer Destination Chair Transfer Technique Stand Step Pivot Transfer Ability Level of Assist Standby Assistance Comments Mobility Comments OT VC for hand placement STS from bed BP 130/67 prior to session sitting HOB elevated RUE Gait Assessment Gait Gait Assistance Required: Standby Assistance Distance (Feet) 100 Assistive Devices Assistive Device Gait Belt 4 Wheeled Walker Gait Deviations General Gait Pattern Antalgic Decreased Stride Length Decreased Feet Clearance Factors Limiting Gait Function Factors Limiting Gait Function Decreased Activity Tolerance Decreased Sensation Pain Comments Gait Comments O2 90-94% during gait, KS up to 95 bpm M5 PT-IP Objective Assessments Start: 07/24/18 16:33 Freq: NEEDED Status: Active Protocol: Document 07/25/18 11:10 [facility] (Rec: 07/25/18 11:58 [facility] [id number]) Orientation Orientation/Cognition Level of Alertness Alert Orientation Name Age Birthday Month Date Year Day of Week Place Situation Gross Range of Motion Lower Extremity ROM Assessment Within Functional Limits Strength Lower Extremity Strength Ankle DF 5/5 B Coordination Assessment Gross Coordination Gross Coordination WNL Sensation Assessment Sensation Gross Sensation Right LE Impaired Left LE Impaired Comments Sensation Comments pt reports numbness B lower legs and feet d/t CA treatment per pt M6 PT-IP Treatment Start: 07/24/18 16:33 Freq: NEEDED Status: Active Protocol: Document 07/25/18 13:10 [facility] (Rec: 07/25/18 14:43 [facility] [id number]) Physical Therapy Treatment Exercises Exercises Ankle Pumps Education Education Provided Precautions M7 PT-IP Assessment and Plan Start: 07/24/18 16:33 Freq: NEEDED Status: Active Protocol: Document 07/26/18 10:15 [facility] (Rec: 07/26/18 10:41 [facility] [id number]) PT Summary Assessment and Plan Summary Assessment Summary POD #2. Pt progressed gait distance with no c/o dizziness /lightheadedness, SOB or increased pain. Pt had catheter reinserted last evening. He requires CGA with bed mobility and verbal cuing for safety, but is making continued slow progress. Expect pt to be able to return home when medically stable, but not likely safe today. Goals Bed Mobility Goal Standby Assistance Transfer Goal Standby Assistance Gait Goal Standby Assistance Gait Distance 150 Other Goals up/down 2 steps with L ascending Days to Meet Goals 5 Frequency of Treatment Frequency Of Treatment Twice a Day Treatment Plan Other Recommendations and Next Treatment log roll, precaution review, Focus gait- stairs prior to d/c. Recommendations To Nursing Amount of Assist Needed 1 Person Assist Discharge Recommendations PT Discharge Recommendations Home with Assistance
--- NOTE | 2018-07-26 12:22 | OT.IP.EVAL ---
Current Diagnoses Other secondary scoliosis, lumbar region (07/24/18) Spondylolisthesis, lumbar region (07/24/18) Spinal stenosis, lumbar region without neurogenic claudication (07/24/18) Surgery Performed Operation Date: 07/24/18 07:45 Actual Procedures p L3-4, L4-5, L5-S1 TLIF w/Posterior Instru. - Alcides Gilmore MD Past Medical History (Last Updated 07/15/18 @ 14:16 by Radha Rayo, RN) Back pain (Acute) Former smoker (Acute) [place] (hard of hearing) (Acute) Hypothyroid (Acute) Left leg swelling (Acute) Myocardial infarction (Acute ~12/2004) Numbness (Acute) RLS (restless legs syndrome) (Acute) Sciatica (Acute) Coronary artery disease (Acute) Elevated cholesterol (Acute) Lymphoma (Acute ~02/2016) Surgical History (Last Updated 07/16/18 @ 09:35 by Radha Rayo RN) History of colonoscopy (Acute) Hx of tonsillectomy (Acute) History of heart artery stent (Acute ~12/2004) Occupational Therapy Inpatient Evaluation/Re-Eval M1 PT/OT-IP Prior Functional Status Start: 07/24/18 16:33 Freq: NEEDED Status: Active Protocol: Document 07/26/18 12:10 [facility] (Rec: 07/26/18 12:22 [facility] [email or web address]) Medical Review Prior Functional Status Medical History Reviewed Yes Mobility and Gait mod indep gait without device Activities of Daily Living and IADL's mod indep I/ADLs Social History Household Members spouse Living Arrangements House Number of Floors (Floors) One Floor Number of Stairs To Enter/Railing? 2 steps to enter with railing on L. Home Environment Standard Height Toilet Walk in Shower Home Equipment Four Wheel Walker Raised Toilet Seat w/Armrests Long Handled Sponge Long Handled Shoe Horn Accounting Reconciliation Clerk Sock Aid Hospital Bed Grab Bars Near Toilet Grab Bars In Shower Employment Status Retired Additional Social History Comment Pt has an adjustable bed without rails and a raised toilet seat. Son purchased a hip kit for pt on [employer] during our training session. M2 OT-IP Current Condition Start: 07/26/18 12:10 Freq: Status: Active Protocol: Document 07/26/18 12:10 [facility] (Rec: 07/26/18 12:22 [facility] [email or web address]) Occupational Therapy Current Condition Current Condition Evaluation Date 07/26/18 Treatment Diagnosis L3-S1 TLIF with instrumentation Diagnosis Onset Date 07/24/18 M3 OT- IP Subjective and Pain Start: 07/26/18 12:10 Freq: Status: Active Protocol: Document 07/26/18 12:10 [facility] (Rec: 07/26/18 12:22 [facility] [email or web address]) OT- Subjective Occupational Therapy Visit Type Type Initial Evaluation Visit Start Time 10:15 Visit Stop Time 10:55 Total Visit Minutes 40 Notes Partial co-treat with P.T. Occupational Therapy Visit Comments Patient Comments I am planning to go home tomorrow. OT Pain Assessment Pain When Pain Assessed At Rest Pain Present Pain Present Pain Reported Location Lower Back Intensity 5 Scale Used Numeric (1 - 10) Management Techniques Timing of Activity with Medications M4 OT- IP ADL's Start: 07/26/18 12:10 Freq: Status: Active Protocol: Document 07/26/18 12:10 [facility] (Rec: 07/26/18 12:22 [facility] [email or web address]) OT ADL-Dressing General Eval Lower Body Dressing Ability Standby Assistance Areas Needing Assistance Underpants/Brief Socks Assistive Devices Dressing Assistive Devices Dressing Stick Accounting Reconciliation Clerk Sock Aid Comments OT Dressing Comments Educated on use of hip kit for LB dressing. OT ADL-Toileting General Evaluation Toileting Ability Independent Comments OT Toileting Comments able to manage clothing and uses grab bars appropriately M5 OT- IP IADL's Start: 07/26/18 12:10 Freq: Status: Active Protocol: Document 07/26/18 12:10 [facility] (Rec: 07/26/18 12:22 [facility] [email or web address]) OT-Instrumental Activities of Daily Living Deficits IADL Deficits Identified No Deficits Home Safety Awareness Awareness of Need for Assistance at Home Good Awareness Ability to Problem Solve Emergency Able to Problem Solve Situations Medication Management Medication Management No Deficits Identified Money Management Money Management No Deficits Identified Meal Preparation Meal Preparation Caregiver Provides Assist Deployment Engineer Deployment Engineer Caregiver Provides Assist Driving Driving Comments 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 Lillian to be safe for driving upon discharge. M6 OT- IP Functional Cognition Start: 07/26/18 12:10 Freq: Status: Active Protocol: Document 07/26/18 12:10 [facility] (Rec: 07/26/18 12:22 [facility] [email or web address]) Cognitive Factors Limiting Selfcare Function Cognitive Ability Level of Alertness Alert Patient Orientation Name Age Birthday Month Date Year Day of Week Place Situation Attention Span Ability Capable of Focused Attention Capable of Sustained Attention Ability to Follow Commands Able to Follow Multi-Step Commands Memory Description No Deficits Noted Safety Awareness No Deficits Noted Problem Solving Ability No deficits Noted Executive Function Ability No Deficits Noted Abstract Thinking Ability No Deficits Noted OT- Vision and Hearing OT- Hearing Assessment OT- Hearing Assessment Hearing Impaired Use of Hearing Aids OT- Vision Assessment Visual Acuity WFL Glasses All The Time Visual Attentiveness WFL Occular Pursuits WFL Visual Convergence WFL Visual Hernandez WFL Vision Assessment Comments Pt wears bifocals M7 OT- IP Mobility and Balance Start: 07/26/18 12:10 Freq: Status: Active Protocol: Document 07/26/18 12:10 [facility] (Rec: 07/26/18 12:22 [facility] [email or web address]) OT- Bed Mobility Assessment Rolling Type of Rolling Log Rolling Level of Assistance Independent Head of Bed Elevated Supine to Sit Supine to Sit Assist Standby Assistance Sit to Supine Sit to Supine Assist Standby Assistance Scooting Scooting to Edge of Bed Standby Assistance OT-Transfer Assessment Sit to and From Stand Sit to and from Stand Standby Assistance Transfers Transfer Ability Standby Assistance Technique Transfer Destination Bed Chair Toilet Devices Transfer Assistive Devices Gait Belt Front Wheeled Walker OT- Gait Assessment Comments Gait Ability Comments See p.t. note for further detail OT- Balance Assessment Sitting Balance and Reactions Static Sitting Balance Ability Normal Dynamic Sitting Balance Ability Normal M8 OT- IP Objective Assessments Start: 07/26/18 12:10 Freq: Status: Active Protocol: Document 07/26/18 12:10 [facility] (Rec: 07/26/18 12:22 [facility] [email or web address]) OT Gross Range of Motion Upper Extremity Range of Motion Assessment Within Functional Limits OT Strength Upper Extremity Strength Assessment Within Functional Limits Comments Strength Comments shld 0-90 d/t pain. OT- Coordination Assessment Upper Extremity Finger to Nose Test Within Functional Limits Finger Tapping Test Within Functional Limits OT-Muscle Tone Assessment Muscle Tone WNL Yes OT Sensation Assessment Comments Summary Comments States normal sensation Edema Edema Absent M9 OT- IP Assessment and Plan Start: 07/26/18 12:10 Freq: Status: Active Protocol: Document 07/26/18 12:10 [facility] (Rec: 07/26/18 12:22 [facility] [email or web address]) OT Summary Assessment and Plan Potential Rehabilitation Potential Excellent Analytic Complexity at Evaluation Low Summary OT Impairments Pain Range of Motion Functional Mobility Dressing Shower Transfers Assessment Summary Pt presents with deficits to ADLs and IADLs s/p back sx. Pt will benefit from another session of LB dressing with hip kit prior to discharge but likely safe for d/c home with family support. Goals Grooming Goal Independent Dressing Goal Independent Dressing Stick Accounting Reconciliation Clerk Sock Aid Toileting Goal Independent Bathing Goal Independent Shower Transfer Goal Independent Days to Meet Goals 5 Frequency of Treatment Frequency Of Treatment Once a Day Treatment Plan OT Treatment Plan ADL Training Functional Mobility IADL Training Patient/Family Education Discharge Planning Other Treatment Recommendations and Next Review and practice LB Treatment Focus dressing. Discharge Recommendations OT Discharge Recommendations Home with Assistance Home Equipment Needs LB dressing kit ordered. Will need a shower chair.
--- NOTE | 2018-07-26 12:30 | PT.IPTN ---
Current Diagnoses Other secondary scoliosis, lumbar region (07/24/18) Spondylolisthesis, lumbar region (07/24/18) Spinal stenosis, lumbar region without neurogenic claudication (07/24/18) Surgery Performed Operation Date: 07/24/18 07:45 Actual Procedures p L3-4, L4-5, L5-S1 TLIF w/Posterior Instru. - Alcides Gilmore MD Physical Therapy Treatment Note M2 PT-IP Current Condition Start: 07/24/18 16:33 Freq: NEEDED Status: Active Protocol: Document 07/25/18 11:10 [facility] (Rec: 07/25/18 11:58 [facility] [id number]) Physical Therapy Current Condition Current Condition Evaluation Date 07/25/18 Treatment Diagnosis L3-4, L4-5, L5-S1 TLIF 07/24/18, impaired activity tolerance and mobility Precautions Lumbar Precautions Log Roll No Twisting Limit Bending Lifting Restriction of 10 lbs Gait Belt above Incisional Area M3 PT-IP Subjective Start: 07/24/18 16:33 Freq: NEEDED Status: Active Protocol: Document 07/26/18 12:30 [facility] (Rec: 07/26/18 13:31 [facility] [id number]) Subjective Physical Therapy Visit Type Type Treatment Note Visit Start Time 12:30 Visit Stop Time 13:00 Total Visit Minutes 30 Number of INSPECTOR PAWNSHOP DETAIL Visits 0 Physical Therapy Visit Comments Patient Comments pt wants to try stairs M4 PT-IP Mobility and Gait Start: 07/24/18 16:33 Freq: NEEDED Status: Active Protocol: Document 07/26/18 12:30 [facility] (Rec: 07/26/18 13:31 [facility] [id number]) PT-Transfer Assessment Sit to and From Stand Sit to and from Stand Standby Assistance Use of Upper Extremities Equipment Transfer Assistive Device Gait Belt 4 Wheeled Walker Transfers Transfer Destination Chair Transfer Technique Stand Step Pivot Transfer Ability Level of Assist Standby Assistance Gait Assessment Gait Gait Assistance Required: Standby Assistance Distance (Feet) 200 Assistive Devices Assistive Device Gait Belt 4 Wheeled Walker Gait Deviations General Gait Pattern Antalgic Decreased Stride Length Decreased Feet Clearance Factors Limiting Gait Function Factors Limiting Gait Function Decreased Activity Tolerance Decreased Sensation Pain Stair Climbing Assessment Evaluation Level of Assist On Stairs Standby Assistance Devices Stair Climbing Assistive Devices Left Railing Right Railing Technique/Endurance Stair Climbing Direction Ascend and Descend Stair Climbing Technique Step to Step Number of Steps Climbed 3 Query Text: Stair Climbing Set # Repetitions (reps) 1 M5 PT-IP Objective Assessments Start: 07/24/18 16:33 Freq: NEEDED Status: Active Protocol: Document 07/25/18 11:10 [facility] (Rec: 07/25/18 11:58 [facility] [id number]) Orientation Orientation/Cognition Level of Alertness Alert Orientation Name Age Birthday Month Date Year Day of Week Place Situation Gross Range of Motion Lower Extremity ROM Assessment Within Functional Limits Strength Lower Extremity Strength Ankle DF 5/5 B Coordination Assessment Gross Coordination Gross Coordination WNL Sensation Assessment Sensation Gross Sensation Right LE Impaired Left LE Impaired Comments Sensation Comments pt reports numbness B lower legs and feet d/t CA treatment per pt M6 PT-IP Treatment Start: 07/24/18 16:33 Freq: NEEDED Status: Active Protocol: Document 07/26/18 12:30 [facility] (Rec: 07/26/18 13:31 [facility] [id number]) Physical Therapy Treatment Exercises Exercises Ankle Pumps Education Education Provided Precautions Safety M7 PT-IP Assessment and Plan Start: 07/24/18 16:33 Freq: NEEDED Status: Active Protocol: Document 07/26/18 12:30 [facility] (Rec: 07/26/18 13:31 [facility] [id number]) PT Summary Assessment and Plan Summary Assessment Summary POD #2. Pt able to do stairs with B rails, did not feel comfortable doing unilat rail today. Overall, pt has met goals of gait and transfers, but would benefit from continued skilled PT during this hospitalization to cont to progress log roll and stairs, as well as CG training . Goals Bed Mobility Goal Standby Assistance Transfer Goal Standby Assistance Gait Goal Standby Assistance Gait Distance 150 Other Goals up/down 2 steps with L ascending Days to Meet Goals 5 Frequency of Treatment Frequency Of Treatment Twice a Day Treatment Plan Other Recommendations and Next Treatment log roll, CG training- 2SE L Focus ascending rail Recommendations To Nursing Amount of Assist Needed 1 Person Assist Discharge Recommendations PT Discharge Recommendations Home with Assistance
[2018-07-26] MEDS: MAGNESIUM HYDROXIDE 30 ML UDC PO (18:06)
[2018-07-26] MEDS: CANDESARTAN 16 MG TABLET 32 MG PO (21:00)
[2018-07-26] MEDS: ATORVASTATIN 20 MG TABLET PO (21:01)
[2018-07-26] MEDS: SENNOSIDES 8.6 MG TABLET 17.2 MG PO (21:01)
[2018-07-26] MEDS: GABAPENTIN 300 MG CAPSULE PO (21:01)
[2018-07-26] MEDS: MULTIVIT,CALC,MINS/IRON/FOLIC 1 TABLET 1 TAB PO (21:02)
[2018-07-26] MEDS: hydroCHLOROthiazide 12.5 MG CAPSULE PO (21:02)
[2018-07-27] MEDS: OXYCODONE IR 5 MG TABLET PO ×2 (02:11→08:30)
--- NOTE | 2018-07-27 02:22 | PC.NURSE ---
Addendum entered by Kristin Saunders R.N. 07/27/18 06:41: Pt unable to void again this shift, pt reports that he can't feel anything referring to his bladder. Bladder scan revealed aprox 299ml at this time. Original Note: Pt voided 250ml 8 hours post honeycutt removal, post void residual of 246ml. Will have pt attempt to void again this shift.
[2018-07-27 04:28] VITALS: BP 93/56; PULSE 76; RESP 19; TEMP 36.8; O2SAT 93
[2018-07-27 05:30] VITALS: BP 105/45
--- NOTE | 2018-07-27 05:53 | PC.NURSE ---
Pt experienced low bp, after elevating legs (pt prefers to sit in bedside chair with legs in dependent position), bp dahiana up to an acceptable level. Pt denied feelings of hypotension during episode and has a history of bilateral (L>R) pitting edema prior to surgery.
[2018-07-27] MEDS: LEVOTHYROXINE 88 MCG TABLET PO (06:17)
--- NOTE | 2018-07-27 07:26 | P.DS_ITS ---
History of Present Illness Date Patient Seen: 07/27/18 Time Patient Seen: 07:21 Chief complaint: [id number] Narrative: Hospital day 4, postop day 3 following L3-4 through L5-S1 TLIF, cage, posterior screw fixation by Dr. Gilmore. Patient has had some short episodes of hypotension off and on since surgery. Most of these of happened of following his legs being elevated. He finds that if he has his legs down a little bit that seems to do better. Also has had some problem with urinary retention postoperatively. He did have to have his [place] catheter replaced yesterday. Catheter was removed and patient able to avoid this morning. He has done PT who have recommended home with assist. Pain controlled with oxycodone 5 mg. He states his preoperative leg pain has resolved. Discharge Providers Date of admission: 07/24/18 06:05 Discharge Date: 07/27/18 Primary care physician: Aung Mcadams MD Consults: 07/16/18 09:41 Consult to Anesthesiology Routine Comment: Consulting Provider: Anesthesiologist Reason for consultation: Surgeon requested re: Cardiac Consult to Pastoral Services Routine Comment: TLIF 07/24/18 07/24/18 15:40 Consult to Respiratory Therapy Evaluate & Treat Comment: Possible sleep apnea s/p surgery Physician Instructions: Evaluate and treat 07/24/18 16:09 Consult to Occupational Therapy Evaluate & Treat Comment: Physician Instructions: Evaluate and treat Consult to Physical Therapy Evaluate & Treat Comment: Physician Instructions: Evaluate and Treat 07/24/18 17:10 Consult to Pastoral Services Routine Comment: pt requests Fide Bernardo Discharge provider: Gio Diehl PA-C Summary Discharge Diagnosis: Status post L3-4 through L5-S1 TLIF, cage, posterior screw fixation Hospital Course: Patient brought to hospital on 07/24/2018 for above-noted surgery. He remained stable postoperatively. Had some episodes of hypotension which stabilized. I did have episode of urine retention requiring replacement of Ch[place] but this resolved. Patient progressed well with physical therapy. Ready for discharge home on postop day 3. Status at Discharge Cognitive/behavioral status at discharge: oriented Functional status at discharge: uses cane/walker Overall status at discharge: patient is progressing back to baseline Time Spent with Patient Less than 30 minutes Exam Vital Signs (past 8 hours): - 07/26/18 23:49 07/27/18 04:28 07/27/18 05:30 Temperature 98.4 F 98.3 F Pulse Rate 97 H 76 Respiratory Rate 17 19 Blood Pressure 133/62 93/56 L 105/45 L Pulse Oximetry 94 93 Oxygen Delivery Method Room Air Oxygen Flow Rate 0 Narrative Exam Narrative: Alert, oriented in no acute distress sitting in chair. Back. Dressing to the lumbar area is dry without drainage or inflammation. Legs. No calf pain. Mild swelling. Good sensation to touch to lower legs. Good strength on foot dorsiflexion plantar flexion. Objective Labs Result Diagrams: 07/25/18 04:57 Discharge Plan Discharge Plan Patient Disposition: Home Discharge Med Rec/Prescriptions Prescriptions: New oxycodone 5 mg Tablet 5 mg PO Q3HR PRN (Reason: Pain, Moderate (4-6)) Qty: 30 RF: 0 hydroxyzine pamoate 25 mg Capsule 25 mg PO Q4HR PRN (Reason: Nausea And Vomiting) Qty: 30 RF: 0 Continued atorvastatin [Lipitor] 40 MG tablet 20 mg PO HS Qty: 0 RF: 0 Centrum Silver 0.4-300-250 mg-mcg-mcg Tablet 1 tab PO DAILY Qty: 0 RF: 0 candesartan-hydrochlorothiazid 32 MG/12.5 MG tablet 1 tab PO BEDTIME Qty: 0 RF: 0 levothyroxine 88 MCG tablet 0.088 mg PO QDAY Qty: 0 RF: 0 gabapentin 300 mg Capsule 300 - 600 mg PO BEDTIME RF: 0 Discontinued aspirin 325 MG tablet 325 mg PO QDAY Qty: 0 RF: 0 Follow up/Referrals: Alcides Gilmore MD [Physician] - Provider Discharge Instructions Diet: Diet as Tolerated Activity: Weight bear as tolerated. No bending, lifting, or twisting Cold/Heat Therapy: Ice packs as needed Skin/Wound/Dressing Care Report to your healthcare provider any signs of infection, such as:: chills, fe sha, unusual drainage and unusual redness Dressing: Leave dressing in place, it will be removed at post operative visit. Notify the office of excessive staining of the dressing. Visit Report/Discharge Packet Instructions: DI for Transforaminal Lumbar Interbody Fusion Discharge Data Primary Care Provider: Aung Mcadams Attending Provider: Alcides Gilmore Admit Date/Time: 06/07/19 06:05 Quality VTE Deep Vein Thrombosis/Pulmonary Embolism Present on Admission: No
[2018-07-27 07:43] VITALS: BP 109/64; PULSE 82; RESP 18; TEMP 36.5; O2SAT 97
[2018-07-27] MEDS: DOCUSATE 100 MG CAPSULE PO (08:00)
[2018-07-27] MEDS: SODIUM CHLORIDE 0.9% FLUSH 10 ML IV (08:02)
--- NOTE | 2018-07-27 08:57 | PC.NURSE ---
Addendum entered by Lashae Ortega R.N. 07/27/18 09:54: Cleared by PT, discharge teaching completed. IV cath out. Original Note: Am shift note Pt is A/o x4, pain with movement, Just returned from [place] where void was able to empty bladder, some decreased sensation to bladder, education provided about focused voiding post op. Medicated for pain, and orders for d/c pending PT eval. Pt up to BR with SBA and FWW from home. Will follow up after PT.
--- NOTE | 2018-07-27 09:21 | PT.IPTN ---
Current Diagnoses Other secondary scoliosis, lumbar region (07/24/18) Spondylolisthesis, lumbar region (07/24/18) Spinal stenosis, lumbar region without neurogenic claudication (07/24/18) Surgery Performed Operation Date: 07/24/18 07:45 Actual Procedures p L3-4, L4-5, L5-S1 TLIF w/Posterior Instru. - Alcides Gilmore MD Physical Therapy Treatment Note M2 PT-IP Current Condition Start: 07/24/18 16:33 Freq: NEEDED Status: Active Protocol: Document 07/25/18 11:10 [facility] (Rec: 07/25/18 11:58 [facility] [id number]) Physical Therapy Current Condition Current Condition Evaluation Date 07/25/18 Treatment Diagnosis L3-4, L4-5, L5-S1 TLIF 07/24/18, impaired activity tolerance and mobility Precautions Lumbar Precautions Log Roll No Twisting Limit Bending Lifting Restriction of 10 lbs Gait Belt above Incisional Area M3 PT-IP Subjective Start: 07/24/18 16:33 Freq: NEEDED Status: Active Protocol: Document 07/27/18 09:14 RS (Rec: 07/27/18 09:21 [facility] [id number]) Subjective Physical Therapy Visit Type Type Treatment Note Visit Start Time 08:30 Visit Stop Time 09:14 Total Visit Minutes 44 Number of ARCHITECTURAL TECHNOLOGIST Visits 0 Physical Therapy Visit Comments Patient Comments Pt reports he walked too much yesterday but is willing to try stairs, he just can't walk down to the stairs and back. Therapy Pain Assessment Pain When Pain Assessed At Rest Pain Present Pain Present Pain Reported M4 PT-IP Mobility and Gait Start: 07/24/18 16:33 Freq: NEEDED Status: Active Protocol: Document 07/27/18 09:14 RS (Rec: 07/27/18 09:21 RS [id number]) PT-Transfer Assessment Sit to and From Stand Sit to and from Stand Standby Assistance Use of Upper Extremities Equipment Transfer Assistive Device 4 Wheeled Walker Transfers Transfer Destination Chair Wheelchair Transfer Technique walked and then turned to sit Transfer Ability Level of Assist Standby Assistance Gait Assessment Gait Gait Assistance Required: Standby Assistance Distance (Feet) 40 Assistive Devices Assistive Device Gait Belt 4 Wheeled Walker Gait Deviations General Gait Pattern Antalgic Decreased Stride Length Decreased Feet Clearance Flexed Trunk Comments Gait Comments Pt walked ~15ft from chair to wc, then 10ft from wc to stairs, then ~40ft back toward room before needing to sit in wc, then ~15 more feet wc to chair. Stair Climbing Assessment Evaluation Level of Assist On Stairs Standby Assistance Devices Stair Climbing Assistive Devices Left Railing Right Railing Technique/Endurance Stair Climbing Direction Ascend and Descend Stair Climbing Technique Step to Step Number of Steps Climbed 3 Query Text: Stair Climbing Set # Repetitions (reps) 1 Comments Stair Climbing Comments Pt didn't actually use the R rail but used the vertical ballister to act as the door frame that he usually uses in conjuction with the L rail to ascend the stairs. Educated pt on descending the stairs backwards so he could still have BUE support in the same way as when he's ascending. This also allows him to maintain his balance better. PT-Balance Assessment Sitting Balance and Reactions Static Sitting Balance Ability Good Dynamic Sitting Balance Ability Good Standing Balance and Reactions Static Standing Balance Ability Fair Dynamic Standing Balance Ability Fair Device Used 4WW M5 PT-IP Objective Assessments Start: 07/24/18 16:33 Freq: NEEDED Status: Active Protocol: Document 07/25/18 11:10 [facility] (Rec: 07/25/18 11:58 [facility] [id number]) Orientation Orientation/Cognition Level of Alertness Alert Orientation Name Age Birthday Month Date Year Day of Week Place Situation Gross Range of Motion Lower Extremity ROM Assessment Within Functional Limits Strength Lower Extremity Strength Ankle DF 5/5 B Coordination Assessment Gross Coordination Gross Coordination WNL Sensation Assessment Sensation Gross Sensation Right LE Impaired Left LE Impaired Comments Sensation Comments pt reports numbness B lower legs and feet d/t CA treatment per pt M6 PT-IP Treatment Start: 07/24/18 16:33 Freq: NEEDED Status: Active Protocol: Document 07/26/18 12:30 [facility] (Rec: 07/26/18 13:31 [facility] [id number]) Physical Therapy Treatment Exercises Exercises Ankle Pumps Education Education Provided Precautions Safety M7 PT-IP Assessment and Plan Start: 07/24/18 16:33 Freq: NEEDED Status: Active Protocol: Document 07/27/18 09:14 RS (Rec: 07/27/18 09:21 RS [id number]) PT Summary Assessment and Plan Potential Rehabilitation Potential Good Status of Condition at Evaluation Stable Summary Progress Towards Goals Safe For Discharge Assessment Summary POD#3. Pt has continued to make slow but consistent functional progress. Pt is safe to discharge home today with assist from [facility] (pending pt's medically readiness). Recommend pt continue with HHPT once at home. Goals Bed Mobility Goal Standby Assistance Transfer Goal Standby Assistance Gait Goal Standby Assistance Gait Distance 150 Other Goals up/down 2 steps with L ascending Days to Meet Goals 5 Frequency of Treatment Frequency Of Treatment Discharge Recommendations To Nursing Amount of Assist Needed Standby Assistance Discharge Recommendations PT Discharge Recommendations Home with Assistance Home Health
== END 2018-07-27 10:26 | disposition home or self-care (01) | DRG 455 ==
PROVIDERS: Admitting Provider Orthopaedic Surgery Orthopaedic Surgery of the Spine; Family Provider Family Medicine; PCP Family Medicine; Visit Provider Orthopaedic Surgery Orthopaedic Surgery of the Spine
PROC: 0SG10AJ Fusion of 2 or more Lumbar Vertebral Joints with Interbody Fusion Device, Posterior Approach, Anterior Column, Open Approach (ICD-10-PCS; principal; 2018-07-24 07:45)
DX: M41.26 Other idiopathic scoliosis, lumbar region (principal); M47.26 Other spondylosis with radiculopathy, lumbar region; M43.16 Spondylolisthesis, lumbar region; I10 Essential (primary) hypertension; E78.5 Hyperlipidemia, unspecified; I25.10 Atherosclerotic heart disease of native coronary artery without angina pectoris; I95.9 Hypotension, unspecified; R33.9 Retention of urine, unspecified; Z87.891 Personal history of nicotine dependence
CPT/HCPCS: 36415; 72100; 76000; 85014; 85018; 94760; 97116; 97161; 97165; 97530; 97535; C1776; C9290; J0330; J0690; J1100; J1170; J2405; J2704; J3010; J3410

== ENCOUNTER → 2019-03-02 11:04 | Outpatient (CLI) | payer MEDICARE, OTHER, SELFPAY ==
[2018-07-24 16:48] VITALS: BMI 33.6
--- NOTE | 2019-03-02 11:09 | DI.CT.S_ITS ---
PROCEDURE: CT LUMBAR SPINE WO CON INDICATIONS: Other spondylosis with radiculopathy, lumbar regio TECHNIQUE: Noncontrast 3 mm thick sections acquired from the T12 level to the sacrum. Sagittal and coronal reformats were constructed. For radiation dose reduction, the following was used: automated exposure control. COMPARISON: [facility], MR, MR LUMBAR SPINE WO CON, 02/05/2018, 16:15. [facility], CT, CT CHEST ABD PEL W CON, 09/04/2017, 10:14. [facility], CT, CT CHEST ABD PEL W CON, 02/25/2018, 10:25. [facility], CR, XR LUMBAR SPINE 2 OR 3 VIEWS, 02/25/2019, 14:56. FINDINGS: Image quality: Excellent. Bones: Dextroconvex scoliotic curvature is present with apex at L3. There is trace retrolisthesis of L1 on L2, L3 on L4, improved compared to prior exam. Posterior fusion is present from L3-S1. Intervertebral spacers are present at L3-4, L4-5 and L5-S1. All hardware is intact. It is noted that the right pedicular screw at L3 has its distal tip along the superior endplate of the vertebral body. Multilevel anterior osteophytes are present most notable at L2 and L5. There is severe disc space narrowing noted at L1-L2, L2-3. Disc bulges are present at L1-L2, L2-3. Postsurgical changes are present L3-4 through L5-S1. There is mild to moderate spinal stenosis at L1-L2, moderate L2-3, minimal to mild at L3-4, L4-5 and mild at L5-S1, improved compared to prior exam. There is mild right foraminal narrowing and moderate left subarticular recess narrowing on the left at L1-2 and L2-3, unchanged. Severe left subarticular and moderate right foraminal narrowing at L3-4 with mild flattening on the left unchanged, mild left foraminal narrowing and severe subarticular recess narrowing on the right with right-sided flattening is similar versus minimally improved. There is severe right and moderate left subarticular recess narrowing with flattening on the right at L5-S1, relatively unchanged. Facet and ligamentum flavum hypertrophy are present at multiple levels. Soft tissues: No retroperitoneal masses or hematomas. Visualized aorta is normal in caliber. Partially visualized right renal cyst is present. IMPRESSION: 1. Posterior fusion from L3-S1 as above. 2. Improved appearance of previous spinal stenosis at L3-4 L4-5 and L5-S1. 3. Significant multilevel foraminal and subarticular recess narrowing, minimally improved versus unchanged as above. Dictated by: Jennifer Sahni M.D. on 03/02/2019 at 14:02 Approved by: Jennifer Sahni M.D. on 03/02/2019 at 16:15
== END ==
PROVIDERS: Family Provider Student in an Organized Health Care Education/Training Program; PCP Student in an Organized Health Care Education/Training Program; Visit Provider Orthopaedic Surgery Orthopaedic Surgery of the Spine
DX: M47.26 Other spondylosis with radiculopathy, lumbar region (principal); M48.061 Spinal stenosis, lumbar region without neurogenic claudication; M48.07 Spinal stenosis, lumbosacral region; N28.1 Cyst of kidney, acquired; Z98.1 Arthrodesis status
CPT/HCPCS: 72131

== ENCOUNTER 2019-03-18 09:13 | Day surgery (SDC) | payer MEDICARE, OTHER, SELFPAY ==
[2018-07-24 16:48] VITALS: BMI 33.6
[2019-03-18] MEDS: CATARACT EYE COMPOUND (10 DROPS/SYRINGE) 3 DROPS EYE-OP (09:40)
[2019-03-18] MEDS: PROPARACAINE 0.5% OPHTH SOL 2 DROPS EYE-OP (09:40)
[2019-03-18 09:45] VITALS: BP 115/71; PULSE 77; RESP 18; TEMP 36.4; O2SAT 98; BMI 33.9
--- NOTE | 2019-03-18 10:05 | PM.PREOP ---
Pre-operative Note Interval Note History & Physical reviewed/Exam performed by Physician: Yes Changes to H&P: No
[2019-03-18] MEDS: PHENYLEPHRINE/LIDOCAINE VIAL (OR) 0.2 ML EYE-OP (10:25)
[2019-03-18] MEDS: TETRACAINE 0.5% OPHTH DROPS 4 ML 2 DROPS EYE-OP (10:26)
[2019-03-18] MEDS: BALANCED SALT IRRIG SOLN NO.2 15 ML 5 ML IRR (10:26)
[2019-03-18] MEDS: CHONDROIDTIN/SOD HYALURONATE 1.05 ML SYRINGE INTRAOCULA (10:26)
[2019-03-18] MEDS: MOXIFLOXACIN INJ 5 MG/ML VIAL EYE-OP (10:26)
[2019-03-18] MEDS: LIDOCAINE 2% INJ SDV 2 ML INJ (10:27)
[2019-03-18] MEDS: BALANCED SALT IRRIG SOLN NO.2 500 ML, EPINEPHrine 1 MG IRR (10:27)
--- NOTE | 2019-03-18 10:49 | PM.OP.1 ---
Procedure & Clinicians Procedure: Cataract extraction with intraocular lens implant, right. Same procedure as scheduled: Yes Indications: Visually significant age related nuclear sclerosis, right Surgeon: Pranav Medina Click Yes if Unassisted: Yes Anesthesia Type: MAC +/- Operative Notes Procedure in detail: The patient was brought to the operating suite. The correct patient, surgical site and lens were confirmed. 0.5 % tetracaine drops were placed in the right eye. The patient was prepped and draped in the typical sterile manner. A lid speculum was placed in the eye. 2% lidocaine was placed on the eye. A paracentesis port was created with a side-port blade. 0.1 mL of 1% preservative free lidocaine with phenylephrine was injected into the anterior chamber. Viscoelastic was injected into the anterior chamber. A 2.6mm keratome was used to create a clear corneal temporal incision. Cystotome and Utrata forceps were used to create a continuous curvilinear capsulorrhexis. Balanced salt solution was used to hydrodissect the nucleus. Phacoemulsification was used to remove the lens. The capsular bag was inflated with viscoelastic. A Raya ZCBOO +22.0D lens was inserted into the capsule. Viscoelastic was removed and the wound hydrated. The wound was found to be leak free and the eye was assessed to be at normal physiologic pressure. 0.1mL Vigamox was injected into the anterior chamber. The lid speculum was removed and the patient left the operating room in excellent condition. Complications: none Post-operative Condition: stable Disposition: same day surgery
[2019-03-18 10:54] VITALS: BP 120/71; PULSE 71; RESP 15; TEMP 36.4; O2SAT 96
== END 2019-03-18 11:05 | disposition home or self-care (01) ==
LOC: OR 09:15
PROVIDERS: PCP Student in an Organized Health Care Education/Training Program; Visit Provider Ophthalmology
PROC: (CPT 66984; principal; 2019-03-18 10:30)
DX: H25.11 Age-related nuclear cataract, right eye (principal); H35.371 Puckering of macula, right eye; I10 Essential (primary) hypertension; E78.5 Hyperlipidemia, unspecified; I25.10 Atherosclerotic heart disease of native coronary artery without angina pectoris
CPT/HCPCS: 66984; J0171; J2250; J3010

== ENCOUNTER 2019-04-01 06:23 | Day surgery (SDC) | payer MEDICARE, OTHER, SELFPAY ==
[2018-07-24 16:48] VITALS: BMI 33.6
[2019-04-01] MEDS: PROPARACAINE 0.5% OPHTH SOL 2 DROPS EYE-OP (07:04)
[2019-04-01 07:08] VITALS: BMI 34.1
[2019-04-01 07:10] VITALS: BP 125/77; PULSE 75; RESP 16; TEMP 36.4; O2SAT 94
[2019-04-01] MEDS: CATARACT EYE COMPOUND (10 DROPS/SYRINGE) 3 DROPS EYE-OP (07:11)
--- NOTE | 2019-04-01 07:23 | PM.PREOP ---
Pre-operative Note Interval Note History & Physical reviewed/Exam performed by Physician: Yes Changes to H&P: No
[2019-04-01] MEDS: TETRACAINE 0.5% OPHTH DROPS 4 ML 2 DROPS EYE-OP (07:40)
[2019-04-01] MEDS: BALANCED SALT IRRIG SOLN NO.2 15 ML 5 ML IRR (08:01)
[2019-04-01] MEDS: CHONDROIDTIN/SOD HYALURONATE 1.05 ML SYRINGE INTRAOCULA (08:02)
[2019-04-01] MEDS: LIDOCAINE 2% INJ SDV 2 ML INJ (08:02)
[2019-04-01] MEDS: PHENYLEPHRINE/LIDOCAINE VIAL (OR) 0.2 ML EYE-OP (08:03)
[2019-04-01] MEDS: MOXIFLOXACIN INJ 5 MG/ML VIAL EYE-OP (08:03)
[2019-04-01] MEDS: BALANCED SALT IRRIG SOLN NO.2 500 ML, EPINEPHrine 1 MG IRR (08:04)
--- NOTE | 2019-04-01 08:18 | PM.OP.1 ---
Procedure & Clinicians Procedure: Cataract extraction with intraocular lens implant, left. Same procedure as scheduled: Yes Indications: Age related visually significant nuclear sclerosis, left Surgeon: Pranav Medina Click Yes if Unassisted: Yes Anesthesia Type: MAC +/- Operative Notes Procedure in detail: The patient was brought to the operating suite. The correct patient, surgical site and lens were confirmed. 0.5 % tetracaine drops were placed in the left eye. The patient was prepped and draped in the typical sterile manner. A lid speculum was placed in the eye. 2% lidocaine was placed on the eye. A paracentesis port was created with a side-port blade. 0.1 mL of 1% preservative free lidocaine with phenylephrine was injected into the anterior chamber. Viscoelastic was injected into the anterior chamber. A 2.6mm keratome was used to create a clear corneal temporal incision. Cystotome and Utrata forceps were used to create a continuous curvilinear capsulorrhexis. Balanced salt solution was used to hydrodissect the nucleus. Phacoemulsification was used to remove the lens. The capsular bag was inflated with viscoelastic. A Raya ZCBOO +21.5D lens was inserted into the capsule. Viscoelastic was removed and the wound hydrated. The wound was found to be leak free and the eye was assessed to be at normal physiologic pressure. 0.1mL Moxifloxacin (5mg/mL) preservative free was injected into the anterior chamber. The lid speculum was removed and the patient left the operating room in excellent condition. Complications: none Post-operative Condition: stable Disposition: same day surgery
[2019-04-01 08:22] VITALS: BP 132/79; PULSE 74; RESP 15; TEMP 36.4; O2SAT 96
== END 2019-04-01 08:30 | disposition home or self-care (01) ==
LOC: OR 06:25
PROVIDERS: PCP Student in an Organized Health Care Education/Training Program; Referring Provider Ophthalmology; Visit Provider Ophthalmology
PROC: (CPT 66984; principal; 2019-04-01 07:45)
DX: H25.12 Age-related nuclear cataract, left eye (principal)
CPT/HCPCS: 66984; J0171; J2250; J3010

== ENCOUNTER 2019-04-21 12:02 | Inpatient (IN) | payer MEDICARE, OTHER, SELFPAY ==
[2018-07-24 16:48] VITALS: BMI 33.6
[2019-04-14 12:54] VITALS: BMI 34.5
[2019-04-21] VITALS (12 sets, daily range): BP systolic 99–137; BP diastolic 53–75; PULSE 70–96; RESP 9–87; TEMP 36.3–37.1; O2SAT 93–96; BMI 34.5
--- NOTE | 2019-04-21 12:32 | PM.PREOP ---
Pre-operative Note Interval Note History & Physical reviewed/Exam performed by Physician: Yes Changes to H&P: No
[2019-04-21] MEDS: LACTATED RINGERS 1,000 ML 42 ML IV ×2 (12:49→14:38)
[2019-04-21] MEDS: CEFAZOLIN 2 GM/100 ML FROZ.PIGGY IV ×2 (13:18→21:11)
[2019-04-21] MEDS: BUPIVACAINE 0.25% W/ EPI 30 ML VIAL INJ (13:55)
[2019-04-21] MEDS: BUPIVACAINE LIPOSOME 266 MG/20 ML VIAL INJ (13:58)
--- NOTE | 2019-04-21 15:30 | PM.OP.1 ---
Operative Date/Time/Diagnoses Date of procedure: 04/21/19 Time of procedure: 12:30 Pre-op diagnosis: 1. Lumbar hardware loosening 2. Lumbar pseudoarthrosis 3. Lumbar spinal stenosis Post-op diagnosis: same Procedure & Clinicians Procedure: 1. L3-4, L4-5, L5-S1 posterior segmental instrumentation removal 2. Revision laminectomy L3-4, L4-5, L5-S1 with exploration of fusion 3. L3-4, L4-5, L5-S1 posterior segmental instrumentation with pedicle screw placement in L3, L4, L5, S1 4. Posterolateral fusion L5-S1 Same procedure as scheduled: Yes Indications: Patient has been having chronic back pain and worsening lumbar radiculopathy. Patient had prior lumbar fusion with initial improvement in his pain and recent worsening of his left-sided low back pain. CT showed hardware loosening on the left side of his lumbar fusion construct. Patient failed multiple conservative management with worsening pain weakness and numbness in her lower extremity. Patient has been having difficulty performing activity of daily living. After discussing risks benefits of treatment options, patient elected proceed with surgery. Surgeon: Alcides Gilmore Nozzle And Sleeve Worker: Mode Damon Click Yes if Unassisted: No Anesthesia Type: General Operative Notes Closure Type: primary Specimen(s): none sent Prosthetic devices, grafts, tissues, transplants, or devices: Globus revolve screws Estimated Blood Loss (mL): 50 Blood products transfused: none Procedure in detail: Patient was seen in the preoperative area. Risks and benefits of the surgery was discussed with the patient. Informed consent was obtained from the patient and placed in the chart. Surgical site was marked. Patient was taken to the operative room. General anesthesia was administered. Prophylactic antibiotic was given to the patient less than 30 min before the incision was made. Patient was placed into a prone position on the Cj table. Patient's back was then prepped and draped in the sterile fashion. Time-out was performed at this time. Using patient's previous scar incision was made over the L3-4 L4-5 L5-S1 interval on the left side. Fascia was incised in line with skin incision. Patient's previously placed hardware over the [] level was identified by dissecting down to the level the hardware using a Bovie and a Bass. The locking caps which was removed using globus screwdriver. The locking susi was then removed from the tulips of the pedicle screws using a Parker. The pedicle screws were then removed using the screwdriver. The screws were found to have good purchase except in left S1 pedicle. Laminectomy was performed using Kerrison rongeur and Leksell rongeur at L3-L4 L5 level and exposing the posterolateral fusion mass. The L3-4 L4-5 level had solid fusion where as the L5-S1 level had visible motion indicating pseudoarthrosis. The hemilaminectomy was performed using the Kerrison rongeur to undercut the lamina as well removing additional epidural scar tissue for purpose of decompressing the epidural space. The fusion mass was explored and was found have visible motion indicating pseudoarthrosis at L5-S1 level. Using the power drill, posterior-lateral decortication was performed at L5-S1 level until bleeding cortical bone was identified. The remaining bone grafting material was placed into the L5-S1 posterior lateral gutter he order to accomplish posterolateral fusion at the L5-S1 level. Using the double C-arm technique, pedicle screws were placed into the L3-L4 L5 and S1 pedicles on the left. This was done by placing the Jamshidi needle into the pedicles, then placing the guidewires over the Jamshidi needle, and finally placing the cannulated screws over the guidewires bilaterally. After the pedicle screws were placed, a titanium rods was locked into the heads of the pedicle screws using locking caps and torque limiting screwdriver. The right-sided patient's fusion was untouched is a showed stable hardware and no signs of loosening. After all the hardware was placed, and confirmed with AP and lateral C-arm imaging, the wound was then irrigated with sterile normal saline and packed with Ray-Pepe gauze for 3 min to accomplish hemostasis. After the gauze was removed the deep fascia was closed with #1 Vicryl suture. The subcutaneous layer was closed with 2-0 Vicryl. The skin was closed with skin nunu. Patient tolerated the procedure well. There were no complications. Complications: none Post-operative Condition: stable Disposition: PACU Plan for aftercare: Admit to inpatient hospital
--- NOTE | 2019-04-21 16:33 | SUR.PHASEI ---
Patient taken up to room 223 with all belongings. Left in good condition with receiving RN and TRAIN EXAMINER at bedside.
[2019-04-21] MEDS: SODIUM CHLORIDE 0.9% 1,000 ML 100 ML IV (16:39)
[2019-04-21] MEDS: ATORVASTATIN 20 MG TABLET PO (21:11)
[2019-04-21] MEDS: DOCUSATE 100 MG CAPSULE PO (21:11)
[2019-04-21] MEDS: SENNOSIDES 8.6 MG TABLET 17.2 MG PO (21:11)
[2019-04-21] MEDS: KETOROLAC 0.5% OPHTH DROPS 5 ML 1 DROPS EYE-LEFT (21:12)
[2019-04-21] MEDS: prednisoLONE OPHTH SUSP 1 DROPS EYE-LEFT (21:12)
[2019-04-22] MEDS: SODIUM CHLORIDE 0.9% 1,000 ML 100 ML IV (04:25)
[2019-04-22] MEDS: CEFAZOLIN 2 GM/100 ML FROZ.PIGGY IV (04:26)
[2019-04-22 04:33] VITALS: BP 99/56; PULSE 60; RESP 16; TEMP 35.9; O2SAT 92
[2019-04-22] MEDS: LEVOTHYROXINE 88 MCG TABLET PO (05:46)
[2019-04-22 07:44] VITALS: BP 105/61; PULSE 57; RESP 16; TEMP 36.4; O2SAT 95
[2019-04-22] MEDS: prednisoLONE OPHTH SUSP 1 DROPS EYE-LEFT (08:36)
[2019-04-22] MEDS: KETOROLAC 0.5% OPHTH DROPS 5 ML 1 DROPS EYE-LEFT (08:36)
--- NOTE | 2019-04-22 09:15 | PT.IIE ---
Current Diagnoses Unspecified fracture of unspecified lumbar vertebra, subsequent encounter for fracture with nonunion (04/21/19) Other mechanical complication of other internal orthopedic devices, implants and grafts, initial encounter (04/21/19) Surgery Performed Operation Date: 04/21/19 13:45 Actual Procedures p L3-S1 lumbar HWR,exploration of fusion,repeat laminectomy,reinsertion of HWR,L5-S1 PSF - Alcides Gilmore MD Surgical History (Last Updated 04/14/19 @ 13:14 by Radha Rayo RN) History of colonoscopy (Acute) History of heart artery stent (Acute ~12/2004) History of lumbar fusion (Acute 07/24/18) Hx of bilateral cataract extraction (Acute ~02/2019) Hx of tonsillectomy (Acute) Medical History (Last Updated 04/14/19 @ 15:26 by Radha Rayo RN) Back pain (Acute) Coronary artery disease (Acute) Elevated cholesterol (Acute) Former smoker (Acute) [employer] [place] [employer] [place] (hard of hearing) (Acute) Hypothyroid (Acute) Left leg swelling (Acute) Lymphoma (Acute ~02/2016) Myocardial infarction (Acute ~12/2004) Numbness (Acute) RBBB (right bundle branch block) (Acute) RLS (restless legs syndrome) (Acute) Sciatica (Acute) Physical Therapy Inpatient Evaluation/Re-Eval M1 PT/OT-IP Prior Functional Status Start: 04/22/19 11:08 Freq: NEEDED Status: Active Protocol: Document 04/22/19 09:15 AB (Rec: 04/22/19 11:16 AB [id number]) Medical Review Prior Functional Status Medical History Reviewed Yes Communication able to make needs known Mobility and Gait pt stated that he is independent with all mobilities and ambulation without AD Social History Household Members spouse Living Arrangements House Number of Floors (Floors) One Floor Number of Stairs To Enter/Railing? 2 steps to enter with bilateral grab/handle bars by the door Home Environment Standard Height Toilet,High Toilet,Walk in Shower,Built-In Shower Seat Home Equipment Four Wheel Walker,Straight Cane,Hand Held Shower,Grab Bars Near Toilet,Grab Bars In Shower M2 PT-IP Current Condition Start: 04/22/19 11:08 Freq: NEEDED Status: Active Protocol: Document 04/22/19 09:15 AB (Rec: 04/22/19 11:16 AB [id number]) Physical Therapy Current Condition Current Condition Evaluation Date 04/22/19 Treatment Diagnosis s/p L3-S1 intrum. removal, lami; L5S1 fusion; diff in walk Onset Date 04/21/2019 Precautions Lumbar Precautions Log Roll,No Twisting,Limit Bending,Lifting Restriction of 10 lbs,Gait Belt above Incisional Area M3 PT-IP Subjective Start: 04/22/19 11:08 Freq: NEEDED Status: Active Protocol: Document 04/22/19 09:15 AB (Rec: 04/22/19 11:16 AB [id number]) Subjective Physical Therapy Visit Type Type Initial Evaluation Visit Start Time 09:15 Visit Stop Time 08:47 Total Visit Minutes 37 Number of CAR USHER Visits 0 Physical Therapy Visit Comments Patient Comments pt agreeable to do PT Therapy Pain Assessment Pain When Pain Assessed At Rest Pain Present Pain Present Pain Reported Location Lower Back Intensity 3 Scale Used Numeric (1 - 10) Pain Management Techniques Re-positioning,Timing of Activity with Medications M4 PT-IP Mobility and Gait Start: 04/22/19 11:08 Freq: NEEDED Status: Active Protocol: Document 04/22/19 09:15 AB (Rec: 04/22/19 11:16 AB [id number]) PT-Bed Mobility Assessment Rolling Type of Rolling Log Rolling Level of Assist Independent Supine to Sit Supine to Sit Independent Sit to Supine Sit to Supine Independent Scooting Scooting to Edge of Bed Standby Assistance PT-Transfer Assessment Sit to and From Stand Sit to and from Stand Standby Assistance,Use of Upper Extremities Equipment Transfer Assistive Device Gait Belt,4 Wheeled Walker Orthotic/Prosthetic Devices or Brace: No Transfers Transfer Destination Bed,Chair Transfer Technique ambulated using 4WW Transfer Ability Level of Assist Standby Assistance Comments Mobility Comments reviewed back precautions and pt was able to recall. completed log roll bed mobility supine <>sit mod I. able to completed sit to stand SBA. Gait Assessment Gait Gait Assistance Required: Standby Assistance Distance (Feet) 300 Able to Maintain Weight Bearing Status Yes During Gait Assistive Devices Assistive Device Gait Belt,4 Wheeled Walker Orthotic/Prosthetic Devices or Brace: No Gait Deviations General Gait Pattern Flexed Trunk Factors Limiting Gait Function Factors Limiting Gait Function Decreased Activity Tolerance, Decreased Strength,Limited Range of Motion,Pain,Poor Balance Comments Gait Comments pt ambulated using 4WW ~ 300 ft x 2 SBA. Stair Climbing Assessment Evaluation Level of Assist On Stairs Standby Assistance Devices Stair Climbing Assistive Devices Left Railing,Right Railing Technique/Endurance Stair Climbing Direction Ascend and Descend Stair Climbing Technique Step to Step Number of Steps Climbed 3 Query Text: Stair Climbing Set # Repetitions (reps) 2 Comments Stair Climbing Comments used 2 rails ascending but only R rail descending SBA. PT-Balance Assessment Sitting Balance and Reactions Static Sitting Balance Ability Normal Dynamic Sitting Balance Ability Good Standing Balance and Reactions Static Standing Balance Ability Good Dynamic Standing Balance Ability Fair Device Used 4WW M5 PT-IP Objective Assessments Start: 04/22/19 11:08 Freq: NEEDED Status: Active Protocol: Document 04/22/19 09:15 AB (Rec: 04/22/19 11:16 AB [id number]) Orientation Orientation/Cognition Level of Alertness Alert Orientation Name,Age,Birthday,Month,Date, Year,Day of Week,Place, Situation Language Function Ability No Deficits Noted Safety Awareness Understands Safety Issues Memory Description No Deficits Noted Gross Range of Motion Lower Extremity ROM Assessment Within Functional Limits Strength Lower Extremity Strength Assessment Within Functional Limits Coordination Assessment Gross Coordination Gross Coordination WNL Other Assessments Other Other Assessments LLE lymphedema M6 PT-IP Treatment Start: 04/22/19 11:08 Freq: NEEDED Status: Active Protocol: Document 04/22/19 09:15 AB (Rec: 04/22/19 11:16 AB [id number]) Physical Therapy Treatment Education Education Provided Precautions,Weight Bearing Status,Post-Op Packet,Safety M7 PT-IP Assessment and Plan Start: 04/22/19 11:08 Freq: NEEDED Status: Active Protocol: Document 04/22/19 09:15 AB (Rec: 04/22/19 11:16 AB [id number]) PT Summary Assessment and Plan Potential Rehabilitation Potential Good Status of Condition at Evaluation Stable Summary Impairments Pain,ROM,Strength,Balance,Bed Mobility,Transfers,Gait, Activity Tolerance Assessment Summary pt is doing well with mobility and is SBA. pt plans to go home and spouse will be able to assist pt. pt may go home when medically stable. Goals Transfer Goal Independent,Four Wheeled Walker Gait Goal Independent,Four Wheel Walker Gait Distance 350 Other Goals ambulation without AD/SPC 250 ft SBA up/down 2 steps 1 rail SBA Days to Meet Goals 3 Frequency of Treatment Frequency Of Treatment Twice a Day Treatment Plan Physical Therapy Treatment Plan Bed Mobility Training,Transfer Training,Gait Training, Therapeutic Exercise,Balance Retraining,Post Op Education, Discharge Planning,Hot or Cold Pack,Neuromuscular Re-ed, Coordination Retraining,Manual Therapy Recommendations To Nursing Amount of Assist Needed Standby Assistance Discharge Recommendations PT Discharge Recommendations Home with Assistance Transportation Needs at Discharge Private Vehicle
--- NOTE | 2019-04-22 10:00 | OT.IP.TRT ---
Current Diagnoses Unspecified fracture of unspecified lumbar vertebra, subsequent encounter for fracture with nonunion (04/21/19) Other mechanical complication of other internal orthopedic devices, implants and grafts, initial encounter (04/21/19) Surgery Performed Operation Date: 04/21/19 13:45 Actual Procedures p L3-S1 lumbar HWR,exploration of fusion,repeat laminectomy,reinsertion of HWR,L5-S1 PSF - Alcides Gilmore MD Occupational Therapy Treatment Note M3 OT- IP Subjective and Pain Start: 04/22/19 16:45 Freq: Status: Active Protocol: Document 04/22/19 10:00 PJM (Rec: 04/22/19 16:47 PJM [id number]) OT- Subjective Occupational Therapy Visit Type Type Administrative Note Visit Start Time 10:00 Visit Stop Time 10:05 Notes OT referral received. Pt admitted for repair of lumbar hardware after lumbar fusion . Pt/ very familiar with lumbar spine precautions from previous surgery and pt uses lower body dressing equipment daily. They have all necessary bathroom safety equipment. Pt does not appear to have any OT goals for this admission and plans to d/c home today with 24 hr assist from . No charge.
[2019-04-22 10:30] VITALS: BP 100/53; PULSE 72; RESP 22; TEMP 36.5; O2SAT 94
--- NOTE | 2019-04-22 11:05 | CM.DANOTE ---
DCP: Case received, EMR reviewed and met with patient. Introduced self and role. Was able to meet with patient and obtain history regarding patient's baseline health, as well as activity level. DCP assessment completed with information currently available. Patient is a 78 year old male who admitted yesterday to the care of the orthopedic team. PCP: Dr. Goldman. Payer: confirmed: Medicare/[employer]. Patient came to the hospital for a surgical procedure. He had a revision of a laminectomy, L3-S1. Patient had his original surgery in July, and according to patient, he mentioned, they had to go in and replace the screws. Met with patient in his room. He was sitting up in his chair, alert and oriented. He is to be working with [employer]. Patient stated that prior to this surgery, was having more back pain. He also mentioned that he does have a cane and walker for use. He also stated that he is driving, and has been able to walk short distances prior to the surgery.Patient resides here in [place] with his spouse, Mary. P: Patient has discharge orders today. Plan is for home after working with P.[employer]. Marlyn Heredia RN/Logistics Associate
--- NOTE | 2019-04-22 12:42 | PM.PNPO.1 ---
Subjective Subjective Date Patient Seen: 04/22/19 Time Patient Seen: 07:30 Interval history: POD #1 s/p 1. L3-4, L4-5, L5-S1 posterior segmental instrumentation removal, revision laminectomy L3-4, L4-5, L5-S1 with exploration of fusion, L3-4, L4-5, L5-S1 posterior segmental instrumentation with pedicle screw placement in L3, L4, L5, S1 and osterolateral fusion L5-S1 with Dr. Gilmore. Patient is doing well. Has no pain. Mobilizing well with PT. Voiding without difficulty or assistance. Denies fever, chills, chest pain, shortness of breath, numbness, tingling, nausea, vomiting, urinary/bowel incontinence. Exam Vital Signs (past 8 hours): - 04/22/19 07:44 04/22/19 10:30 Temperature 97.5 F L 97.7 F Pulse Rate 57 L 72 Respiratory Rate 16 22 Blood Pressure 105/61 100/53 L Pulse Oximetry 95 94 Oxygen Delivery Method Room Air Oxygen Flow Rate 0 Narrative Exam Narrative: 78 yo M is sitting comfortably in chair, in no apparent distress. A&Ox3. Dressing CDI. Able to actively dorsiflex/plantar flex BL. Sensory function grossly intact to light touch in LE BL. Calves warm, soft, compressible, non tender to palpation. Dorsalis pedis 2+ BL. Assessment & Plan Post-op Postoperative Procedures: Procedures Operation Date: 04/21/19 13:45 Actual Procedures Side Surgeon p L3-S1 lumbar HWR,exploration of fusion,repeat laminectomy,reinsertion of HWR,L5-S1 PSF Alcides Gilmore MD Postoperative day: 1 Postoperative status: doing well Postoperative plan: discharge Postoperative plan narrative: Patient is ready for discharge home. Discharge home with prescription for oxycodone 5mg Continue mobilizing with PT Will follow up with clinic in 2 weeks Time Spent With Patient Time with patient: less than 15 minutes Quality VTE Deep Vein Thrombosis/Pulmonary Embolism Present on Admission: No
== END 2019-04-22 11:31 | disposition home or self-care (01) | DRG 460 ==
PROVIDERS: Admitting Provider Orthopaedic Surgery Orthopaedic Surgery of the Spine; PCP Student in an Organized Health Care Education/Training Program; Referring Provider Student in an Organized Health Care Education/Training Program; Visit Provider Orthopaedic Surgery Orthopaedic Surgery of the Spine
PROC: 0SG30K1 Fusion of Lumbosacral Joint with Nonautologous Tissue Substitute, Posterior Approach, Posterior Column, Open Approach (ICD-10-PCS; principal; 2019-04-21 13:45)
DX: T84.038A Mechanical loosening of other internal prosthetic joint, initial encounter (principal); M96.0 Pseudarthrosis after fusion or arthrodesis; M48.061 Spinal stenosis, lumbar region without neurogenic claudication; E78.5 Hyperlipidemia, unspecified; I10 Essential (primary) hypertension; I25.10 Atherosclerotic heart disease of native coronary artery without angina pectoris; E03.9 Hypothyroidism, unspecified; Z87.891 Personal history of nicotine dependence; Z95.5 Presence of coronary angioplasty implant and graft
CPT/HCPCS: 97116; 97161; C1776; C9290; J0690; J1100; J1170; J2250; J2405; J2704; J3010

== ENCOUNTER 2019-06-26 10:16 | Emergency (ER) | payer MEDICARE, OTHER, SELFPAY ==
[2019-04-21 12:05] VITALS: BMI 34.5
[2019-06-26] VITALS (9 sets, daily range): BP systolic 104–125; BP diastolic 64–82; PULSE 73–104; RESP 12–23; TEMP 36.5; O2SAT 93–99
--- NOTE | 2019-06-26 10:32 | DI.RAD.S_ITS ---
PROCEDURE: XR CHEST 1V INDICATIONS: chest pain TECHNIQUE: One view of the chest was acquired. COMPARISON: [facility], CT, CT CHEST ABD PEL W CON, 02/25/2018, 10:25. [facility], CT, CT CHEST ABD PEL W CON, 09/04/2017, 10:14. [facility], CR, CHEST FOR PICC PLACEMENT, 04/03/2016, 9:54. FINDINGS: Surgical changes and devices: None. Lungs and pleura: An incomplete inspiratory result is noted, causing a crowded appearance to the lung markings. No pneumothorax or significant pleural effusions are seen. Interstitial prominence is seen. Mediastinum: Mediastinal contours appear normal. Heart size is normal. Bones and chest wall: No suspicious bony lesions. Age-appropriate bony degenerative changes are seen. Overlying soft tissues appear unremarkable. IMPRESSION: Interstitial prominence is seen. Differential diagnosis includes artifact from the incomplete inspiratory result and pulmonary edema. As clinically appropriate, a short-term followup chest series (with PA and lateral views) performed in deep inspiration is suggested for further evaluation. Dictated by: Tal Saleh M.D. on 06/26/2019 at 10:35 Approved by: Tal Saleh M.D. on 06/26/2019 at 10:37
[2019-06-26] MEDS: ASPIRIN 81 MG CHEW TAB 324 MG PO (10:52)
[2019-06-26 11:09] LABS: Add Manual Diff / Slide Review NO; Basophils Absolute Auto 0 /uL (0-100); Basophils Percent Auto 0.8 % (0-2); Eosinophils Absolute Auto 300 /uL (0-450); Eosinophils Percent Auto 6.4 % (2-4); Hemoglobin 15.1 g/dL (13.5-17.5); Lymphocytes Absolute Auto 1000 /uL (1100-4500); Lymphocytes Percent Auto 21.6 % (25-40); Mean Corpuscular HGB Conc 35.1 % (30-36); Mean Corpuscular Hemoglobin 32.8 PG (26-34); Mean Corpuscular Volume 93.2 fL (80-100); Monocytes Absolute Auto 500 /uL (0-900); Monocytes Percent Auto 11.1 % (3-14); Neutrophils Absolute Auto 2700 /uL (1500-7000); Neutrophils Percent Auto 60.1 % (50-75); Platelet Count 179 X10^3/uL (150-400); Red Blood Cell Count 4.61 X10^6/uL (4.5-5.9); Red Cell Distribution Width 13.4 % (11.6-14.8); White Blood Cell Count 4.5 X10^3/uL (4.5-11.0)
[2019-06-26 11:15] LABS: Prothrombin Time 11.3 SECONDS (10.1-12.7)
--- NOTE | 2019-06-26 11:16 | ED.CHESTPAIN ---
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 Patient states approximately at 8AM when he was walking in his house when he noticed a hot flash that lasted approximately a minute. Patient then sat down to eat his breakfast a few minutes after the hot flash she felt lightheaded and describes it as ?I felt like I was going to pass out ?. He states the sensation lasted about a minute and immediately after he felt some substernal chest tightness which she describes as ?like a vice breaker operator ?. He states the chest tightness has lasted about an hour and has progressively lessened. He states he has some slight substernal chest tightness at this time. He denies any aggravating or alleviating factors. He denies ever experiencing chest tightness in the past. He states he has occasionally felt lightheaded and is usually due to lack of fluid consumption. Patient denies any known exposures to COVID-19 positive individuals. Patient denies any other symptoms such as fevers, cough, shortness of breath, vision changes, headache, wheezing, abdominal pain, nausea, vomiting, diarrhea, gait disturbances, speech abnormalities, or any other concerns. Patient does report recent surgery on his back in the past few months, denies any history of blood clots. Patient reports taking aspirin daily. Patient denies any history of asthma or COPD. Related Data Home Medications Medication Instructions Recorded Confirmed Centrum Silver 1 tab PO DAILY #0 09/25/12 06/26/19 atorvastatin [Lipitor] 20 mg PO HS #0 09/25/12 06/26/19 candesartan-hydrochlorothiazid 1 tab PO BEDTIME #0 03/22/16 06/26/19 levothyroxine 0.088 mg PO QDAY #0 09/10/16 06/26/19 fenofibrate 150 mg PO BEDTIME 04/14/19 06/26/19 ferrous sulfate 325 mg PO BEDTIME 04/14/19 06/26/19 hydrocodone-acetaminophen 1 tab PO BID 06/26/19 06/26/19 Allergies Allergy/AdvReac Type Severity Reaction Status Date / Time adhesive tape Allergy Intermediate Rash Verified 06/26/19 10:36 Review of Systems <PALMIRA Jamison - Last Filed: 06/26/19 20:29> Review of Systems Narrative: REVIEW OF SYSTEMS: GENERAL: Denies fever or chills. HENT: No head trauma, hearing loss or sore throat. EYES: No vision changes. CARDIOVASCULAR: Complains of chest tightness, see HPI. RESPIRATORY: No shortness of breath or cough. GASTROINTESTINAL: No nausea, vomiting, diarrhea, or constipation. GENITOURINARY: No flank pain or dysuria. MUSCULOSKELETAL: No pain, weakness, or deformities. INTEGUMENTARY: No rash, lesions, or pruritus. NEURO: No numbness, tingling, memory loss, or confusion. PSYCH: No behavior or mood changes. Patient History <PALMIRA Jamison - Last Filed: 06/26/19 20:29> Medical History Back pain (Acute) Coronary artery disease (Acute) Elevated cholesterol (Acute) Former smoker (Acute) EKWOK (hard of hearing) (Acute) Hypothyroid (Acute) Left leg swelling (Acute) Lymphoma (Acute ~02/2016) Myocardial infarction (Acute ~12/2004) Numbness (Acute) RBBB (right bundle branch block) (Acute) RLS (restless legs syndrome) (Acute) Sciatica (Acute) Surgical History History of colonoscopy (Acute) History of heart artery stent (Acute ~12/2004) History of lumbar fusion (Acute 07/24/18) Hx of bilateral cataract extraction (Acute ~02/2019) Hx of tonsillectomy (Acute) Social History household members: spouse Smoking Status: Former smoker Tobacco: How many years used: 8 alcohol intake: former Smoking Status: Former smoker alcohol intake frequency: 0-2 drinks per day Substance Use Type: does not use Exam <PALMIRA Jamison - Last Filed: 06/26/19 20:29> Initial Vital Signs Initial Vital Signs: Vital Signs Temperature 97.7 F 06/26/19 10:32 Pulse Rate 104 H 06/26/19 10:32 Respiratory Rate 18 06/26/19 10:32 Blood Pressure 119/77 06/26/19 10:32 Pulse Oximetry 94 06/26/19 10:32 PHYSICAL EXAMINATION: GENERAL: Well groomed, alert, and cooperative. Answers questions promptly and appropriately. Vital signs noted. HENT: Normocephalic, atraumatic. Ear canals patent. Oral mucosa is pink and moist. EYES: Conjunctiva pink, sclera white, no periorbital swelling. CHEST: Normal to inspection and without deformities. No tenderness with palpation. CARDIOVASCULAR: S1 and S2 sounds normal. Regular rate and rhythm, no murmurs, clicks, or bruits. No pedal edema. RESPIRATORY: Normal respiratory rate, trachea midline, airway patent. No stridor, nasal flaring or accessory muscle use. Lungs are clear in all devine without wheeze, rhonchi, or crackles. GASTROINTESTINAL: Bowel sounds normoactive. Abdomen is soft and non-tender. No organomegaly. MUSCULOSKELETAL: Normal gait and coordination. Equal tone and mass bilaterally. EXTREMITIES: CMS intact. Moves all extremities. SKIN: Warm, dry, soft, appropriate color for ethnicity. No lesions, rashes, or wounds. NEURO: Alert and Oriented X 3. Good coordination. No ataxia, or sensory deficits, or cognitive issues. PSYCH: Appropriate affect and mood. <Anupam Gonzalez MD - Last Filed: 06/27/19 07:43> Initial Vital Signs Initial Vital Signs: Vital Signs Temperature 97.7 F 06/26/19 10:32 Pulse Rate 104 H 06/26/19 10:32 Respiratory Rate 18 06/26/19 10:32 Blood Pressure 119/77 06/26/19 10:32 Pulse Oximetry 94 06/26/19 10:32 Scores <PALMIRA Jamison - Last Filed: 06/26/19 20:29> GCS [place] coma scale eye opening: Spontaneous Merle coma scale verbal response: Orientated Merle coma scale motor response: Obey commands Merle coma scale total score: 15 HEART Score Heart Score history: Moderately Suspicious Heart Score EKG: Normal Heart Score Age: > or = 65 years old Heart Score risk factors: > 3 risk factors or hx of atherosclerotic disease Heart Score troponin: > 3 times normal limit Heart Score Total: 7 PERC Score Age greater than or equal to 50 years: Yes Heart rate greater than or equal to 100 bpm: No Room Air O2 Sat less than 95%: No Unilateral leg swelling: No Recent trauma or surgery: No Hemoptysis: No Prior PE or DVT: No Hormone Use: No Total PERC Score: 1 Wells' Criteria for PE Clinical signs and symptoms of DVT: Yes PE is #1 Dx or equally likely: No Heart rate > 100: No Immobilization at least 3 days or surg in previous 4 weeks: No History of PE or DVT: No Hemoptysis: No Malignancy w/Treatment within 6 months or palliative: No Wells' PE Score total: 3 Course <PALMIRA Jamison - Last Filed: 06/26/19 20:29> Course Course Narrative: 12:46 Patient denies any chest pain or pressure at this time. 1257: Spoke with Dr. Laird about elevated trop of 0.113. Dr. Gonzalez advised starting 5000 units of bolus of heparin and a drip 1000ml/hr of heparin. I discussed with patient the risks and benefits of starting heparin including possibility of bleeding, patient consented to heparin. Patient states that he sees Dr. Fagan for cardiology. [facility] was paged. 1415: I spoke with PALMIRA Felix at [facility] about patient discussed patient's symptoms, laboratory results, elevated troponin, and EKG. Discussed he will check with hospitalist and return phone call. 1438: Spoke with PALMIRA Felix and was given a phone number for hospitalist for N, Dr. Kali Ledbetter. 1530: I spoke with Dr. Ledbetter about patient. Confirmed with pateint that his PCP was Dr. Goldman through [facility]. Discussed patient's symptoms, EKG, and elevated troponin. Patient was accepted. [facility] contacted. 1627: Patient remains pain free. Orders Ordered: Discontinued Medications Aspirin (Aspirin Chew) 324 mg PO NOW ONE Stop: 06/26/19 10:33 Last Admin: 06/26/19 10:52 Dose: 324 mg Documented by: EZEQUIEL Heparin Sodium (Porcine) (Heparin) 5,000 unit IV NOW ONE Stop: 06/26/19 13:49 Last Admin: 06/26/19 13:56 Dose: 5,000 unit Documented by: ANASTASIA Heparin Sodium/Dextrose (Heparin Drip) 25,000 unit in 500 mls @ 20 mls/hr IV CONT KAVON; Protocol Last Titration: 06/26/19 16:41 Dose: 0 units/hr, 0 mls/hr Documented by: Admin: 06/26/19 13:56 Dose: 1,000 units/hr, 20 mls/hr Documented by: ANASTASIA Consultations Consultation #1: Consultations as seen above. Vital Signs Vital signs: Vital Signs - 8 hr 06/26/19 12:30 06/26/19 13:00 06/26/19 13:30 Pulse Rate 79 74 73 Respiratory Rate 23 15 12 Blood Pressure [Left Arm] 109/64 116/64 110/64 Pulse Oximetry 97 96 93 06/26/19 14:00 06/26/19 14:53 06/26/19 15:30 Pulse Rate 77 83 82 Respiratory Rate 14 18 18 Blood Pressure [Left Arm] 121/68 125/75 104/82 Pulse Oximetry 98 99 06/26/19 16:13 Pulse Rate 81 Respiratory Rate 18 Blood Pressure [Left Arm] 113/72 Pulse Oximetry 98 <Anupam Gonzalez MD - Last Filed: 06/27/19 07:43> Orders Ordered: Discontinued Medications Aspirin (Aspirin Chew) 324 mg PO NOW ONE Stop: 06/26/19 10:33 Last Admin: 06/26/19 10:52 Dose: 324 mg Documented by: EZEQUIEL Heparin Sodium (Porcine) (Heparin) 5,000 unit IV NOW ONE Stop: 06/26/19 13:49 Last Admin: 06/26/19 13:56 Dose: 5,000 unit Documented by: ANASTASIA Heparin Sodium/Dextrose (Heparin Drip) 25,000 unit in 500 mls @ 20 mls/hr IV CONT KAVON; Protocol Last Titration: 06/26/19 16:41 Dose: 0 units/hr, 0 mls/hr Documented by: Admin: 06/26/19 13:56 Dose: 1,000 units/hr, 20 mls/hr Documented by: ANASTASIA Vital Signs Vital signs: Vital Signs - 8 hr 06/26/19 12:30 06/26/19 13:00 06/26/19 13:30 Pulse Rate 79 74 73 Respiratory Rate 23 15 12 Blood Pressure [Left Arm] 109/64 116/64 110/64 Pulse Oximetry 97 96 93 06/26/19 14:00 06/26/19 14:53 06/26/19 15:30 Pulse Rate 77 83 82 Respiratory Rate 14 18 18 Blood Pressure [Left Arm] 121/68 125/75 104/82 Pulse Oximetry 98 99 06/26/19 16:13 Pulse Rate 81 Respiratory Rate 18 Blood Pressure [Left Arm] 113/72 Pulse Oximetry 98 MDM - Chest Pain <Haylee PALMIRA Sethi - Last Filed: 06/26/19 20:29> Medical Records Data Attestation: I reviewed the patient's medical records. Lab Data Attestation: I reviewed the patient's lab results. Result diagrams: 06/26/19 10:55 06/26/19 10:55 Labs: Lab Results 06/26/19 06/26/19 06/26/19 Range/Units 10:55 10:55 10:55 WBC 4.5 (4.5-11.0) X10^3/uL RBC 4.61 (4.5-5.9) X10^6/uL Hgb 15.1 (13.5-17.5) g/dL Hct 43.0 (41-53) % MCV 93.2 (80-100) fL MCH 32.8 (26-34) PG MCHC 35.1 (30-36) % RDW 13.4 (11.6-14.8) % Plt Count 179 (150-400) X10^3/uL Neut % (Auto) 60.1 (50-75) % Lymph % (Auto) 21.6 L (25-40) % [place] % (Auto) 11.1 (3-14) % Eos % (Auto) 6.4 H (2-4) % Baso % (Auto) 0.8 (0-2) % Neut # (Auto) 2700 (0376-1488) /uL Lymph # (Auto) 1000 L (0490-8713) /uL [place] # (Auto) 500 (0-900) /uL Eos # (Auto) 300 (0-450) /uL Baso # (Auto) 0 (0-100) /uL PT 11.3 (10.1-12.7) SECONDS INR 1.0 (0.9-1.3) APTT 27 (26.4-36.2) SECONDS D-Dimer (<230) ng/mL Sodium 139 (137-145) mmol/L Potassium 3.7 (3.4-5.1) mmol/L Chloride 104 (98-107) mmol/L Carbon Dioxide 25 (22-32) mmol/L BUN 24 H (9-20) mg/dL Creatinine 1.24 (0.66-1.25) mg/dL Estimated GFR 56.5 L (>60) mL/min BUN/Creatinine Ratio 19.4 (6-22) Glucose 149 H (80-110) mg/dL Calcium 10.1 (8.4-10.2) mg/dL Total Bilirubin 0.6 (0.2-1.3) mg/dL AST 26 (17-59) IU/L ALT 20 (<50) IU/L Alkaline Phosphatase 56 (38-126) U/L Total Creatine Kinase 57 (55-170) U/L CK-MB (CK-2) TNP CK-MB (CK-2) Rel Index TNP Troponin I < 0.012 (0.01-0.034) ng/mL NT-Pro-B Natriuret Pep (<450) pg/mL Total Protein 7.2 (6.3-8.2) g/dL Albumin 4.5 (3.5-5.0) g/dL Globulin 2.7 (1.7-4.1) g/dL Albumin/Globulin Ratio 1.7 (1.0-2.8) Lipase 153 (23-300) U/L COVID-19 PCR 06/26/19 06/26/19 06/26/19 Range/Units 10:55 10:55 10:55 WBC (4.5-11.0) X10^3/uL RBC (4.5-5.9) X10^6/uL Hgb (13.5-17.5) g/dL Hct (41-53) % MCV (80-100) fL MCH (26-34) PG MCHC (30-36) % RDW (11.6-14.8) % Plt Count (150-400) X10^3/uL Neut % (Auto) (50-75) % Lymph % (Auto) (25-40) % [place] % (Auto) (3-14) % Eos % (Auto) (2-4) % Baso % (Auto) (0-2) % Neut # (Auto) (2693-5075) /uL Lymph # (Auto) (1882-0470) /uL [place] # (Auto) (0-900) /uL Eos # (Auto) (0-450) /uL Baso # (Auto) (0-100) /uL PT (10.1-12.7) SECONDS INR (0.9-1.3) APTT (26.4-36.2) SECONDS D-Dimer 273 H (<230) ng/mL Sodium (137-145) mmol/L Potassium (3.4-5.1) mmol/L Chloride (98-107) mmol/L Carbon Dioxide (22-32) mmol/L BUN (9-20) mg/dL Creatinine (0.66-1.25) mg/dL Estimated GFR (>60) mL/min BUN/Creatinine Ratio (6-22) Glucose (80-110) mg/dL Calcium (8.4-10.2) mg/dL Total Bilirubin (0.2-1.3) mg/dL AST (17-59) IU/L ALT (<50) IU/L Alkaline Phosphatase (38-126) U/L Total Creatine Kinase (55-170) U/L CK-MB (CK-2) CK-MB (CK-2) Rel Index Troponin I (0.01-0.034) ng/mL NT-Pro-B Natriuret Pep 180 (<450) pg/mL Total Protein (6.3-8.2) g/dL Albumin (3.5-5.0) g/dL Globulin (1.7-4.1) g/dL Albumin/Globulin Ratio (1.0-2.8) Lipase (23-300) U/L COVID-19 PCR Cancelled 06/26/19 06/26/19 Range/Units 12:57 13:44 WBC (4.5-11.0) X10^3/uL RBC (4.5-5.9) X10^6/uL Hgb (13.5-17.5) g/dL Hct (41-53) % MCV (80-100) fL MCH (26-34) PG MCHC (30-36) % RDW (11.6-14.8) % Plt Count (150-400) X10^3/uL Neut % (Auto) (50-75) % Lymph % (Auto) (25-40) % [place] % (Auto) (3-14) % Eos % (Auto) (2-4) % Baso % (Auto) (0-2) % Neut # (Auto) (1703-2850) /uL Lymph # (Auto) (9327-9666) /uL [place] # (Auto) (0-900) /uL Eos # (Auto) (0-450) /uL Baso # (Auto) (0-100) /uL PT (10.1-12.7) SECONDS INR (0.9-1.3) APTT (26.4-36.2) SECONDS D-Dimer (<230) ng/mL Sodium (137-145) mmol/L Potassium (3.4-5.1) mmol/L Chloride (98-107) mmol/L Carbon Dioxide (22-32) mmol/L BUN (9-20) mg/dL Creatinine (0.66-1.25) mg/dL Estimated GFR (>60) mL/min BUN/Creatinine Ratio (6-22) Glucose (80-110) mg/dL Calcium (8.4-10.2) mg/dL Total Bilirubin (0.2-1.3) mg/dL AST (17-59) IU/L ALT (<50) IU/L Alkaline Phosphatase (38-126) U/L Total Creatine Kinase (55-170) U/L CK-MB (CK-2) CK-MB (CK-2) Rel Index Troponin I 0.113 H (0.01-0.034) ng/mL NT-Pro-B Natriuret Pep (<450) pg/mL Total Protein (6.3-8.2) g/dL Albumin (3.5-5.0) g/dL Globulin (1.7-4.1) g/dL Albumin/Globulin Ratio (1.0-2.8) Lipase (23-300) U/L COVID-19 PCR Negative Imaging Data Chest x-ray: Radiologist's Impression: [address] [address] XRay Report Signed Patient: Gio Peace TMR#: [id number] : 2At:[id number] Age/Sex: 78 / MDate of Service: 06/26/19 Loc: ED Accession Number: [id number] Procedure: XR chest 2V Ordering Provider: Haylee Sethi PROCEDURE: XR CHEST 2V INDICATIONS: CHest tightness TECHNIQUE: 2 views of the chest were acquired. COMPARISON: [facility], CR, XR CHEST 1V, 06/26/2019, 10:52. FINDINGS: Surgical changes and devices: None. Lungs and pleura: Mild atelectasis is present at the bilateral lung bases. No focal airspace opacities. No pleural effusions or pneumothorax. Mediastinum: Mediastinal contours are normal. Heart size is normal. There is a large gas and fluid filled hiatal hernia. Bones and chest wall: No suspicious bony abnormalities. Soft tissues appear unremarkable. IMPRESSION: 1. Basilar atelectasis bilaterally. 2. Hiatal hernia. Dictated by: Rosmery Flower M.D. on 06/26/2019 at 12:13 Approved by: Rosmery Flower M.D. on 06/26/2019 at 12:14 1-view Chest: Radiologist's Impression: [address] [address] XRay Report Signed Patient: Gio Peace TMR#: [id number] : 2Acct:[id number] Age/Sex: 78 / MDate of Service: 06/26/19 Loc: ED Accession Number: [id number] Procedure: XR chest 1V Ordering Provider: Anupam Gonzalez MD PROCEDURE: XR CHEST 1V INDICATIONS: chest pain TECHNIQUE: One view of the chest was acquired. COMPARISON: [facility], CT, CT CHEST ABD PEL W CON, 02/25/2018, 10:25. [facility], CT, CT CHEST ABD PEL W CON, 09/04/2017, 10:14. [facility], CR, CHEST FOR PICC PLACEMENT, 04/03/2016, 9:54. FINDINGS: Surgical changes and devices: None. Lungs and pleura: An incomplete inspiratory result is noted, causing a crowded appearance to the lung markings. No pneumothorax or significant pleural effusions are seen. Interstitial prominence is seen. Mediastinum: Mediastinal contours appear normal. Heart size is normal. Bones and chest wall: No suspicious bony lesions. Age-appropriate bony degenerative changes are seen. Overlying soft tissues appear unremarkable. IMPRESSION: Interstitial prominence is seen. Differential diagnosis includes artifact from the incomplete inspiratory result and pulmonary edema. As clinically appropriate, a short-term followup chest series (with PA and lateral views) performed in deep inspiration is suggested for further evaluation. Dictated by: Tal Saleh M.D. on 06/26/2019 at 10:35 Approved by: Tal Saleh M.D. on 06/26/2019 at 10:37 ECG Data Interpretation: 1026: Sinus tachycardia, rate 106, ND interval 275, QTC 420. Right bundle branch, first-degree AV block. PVCs noted. No ST elevation or ST depression. No T-wave abnormality. EKG also viewed by Dr. Lomas per protocol. 1259: Normal sinus rhythm. Rate 80, ND interval to 15, QTC 432. No ST elevation or ST depression. No T-wave inversion. No ectopy. First-degree AV block, right bundle branch block. EKG also viewed by Dr. Gonzalez per protocol. [facility] Narrative Medical decision making narrative: 78-year-old male with a history of previous MN and B-cell lymphoma presents emergency department for an an episode of diaphoresis/hot flash, followed by a brief episode of lightheadedness, followed by an episode of chest pain. I suspect patient's symptoms are most likely due to ACS due to elevated troponin to hour troponin of 0.133, previous MN, heart score of 7, and nature of pain. Heparin was started per cardiac protocol after discussion with Dr. Gonzalez. Patient remained chest pain free without intervention in the emergency department. Contacted cardiology at [facility] and spoke with PALMIRA Chavis recommended admission with [facility] hospitalist, spoke with Dr. Kali Alan who accepted patient. Patient was transferred to [facility] after consent via ALS due to nature diagnosis, need for cardiac monitoring, and ongoing heparin drip. Patient remained hemodynamically stable throughout the emergency department without need for intervention. Other differential diagnoses include: Less likely infectious due to lack of fever, sustained tachycardia, or complains of other symptoms such as shortness of breath or cough. COVID-19 is negative. No white blood cell count. Initially some infiltrates were seen on chest x-ray, followed up with lateral image of chest which indicated atelectasis. This is most likely due to shallow breathing related to patient's chronic back pain. Less likely PE, patient's D-dimer of 273 but age adjusted upper limit of 385 makes PE unlikely. Additionally, patient did not have sustained tachycardia or hypoxia. Less likely CHF due to clear lung sounds, BNP negative, no lower leg edema, no history of CHF. <Anupam Gonzalez MD - Last Filed: 06/27/19 07:43> Lab Data Labs: Lab Results 06/26/19 06/26/19 06/26/19 Range/Units 10:55 10:55 10:55 WBC 4.5 (4.5-11.0) X10^3/uL RBC 4.61 (4.5-5.9) X10^6/uL Hgb 15.1 (13.5-17.5) g/dL Hct 43.0 (41-53) % MCV 93.2 (80-100) fL MCH 32.8 (26-34) PG MCHC 35.1 (30-36) % RDW 13.4 (11.6-14.8) % Plt Count 179 (150-400) X10^3/uL Neut % (Auto) 60.1 (50-75) % Lymph % (Auto) 21.6 L (25-40) % [place] % (Auto) 11.1 (3-14) % Eos % (Auto) 6.4 H (2-4) % Baso % (Auto) 0.8 (0-2) % Neut # (Auto) 2700 (9972-3316) /uL Lymph # (Auto) 1000 L (5622-8625) /uL [place] # (Auto) 500 (0-900) /uL Eos # (Auto) 300 (0-450) /uL Baso # (Auto) 0 (0-100) /uL PT 11.3 (10.1-12.7) SECONDS INR 1.0 (0.9-1.3) APTT 27 (26.4-36.2) SECONDS D-Dimer (<230) ng/mL Sodium 139 (137-145) mmol/L Potassium 3.7 (3.4-5.1) mmol/L Chloride 104 (98-107) mmol/L Carbon Dioxide 25 (22-32) mmol/L BUN 24 H (9-20) mg/dL Creatinine 1.24 (0.66-1.25) mg/dL Estimated GFR 56.5 L (>60) mL/min BUN/Creatinine Ratio 19.4 (6-22) Glucose 149 H (80-110) mg/dL Calcium 10.1 (8.4-10.2) mg/dL Total Bilirubin 0.6 (0.2-1.3) mg/dL AST 26 (17-59) IU/L ALT 20 (<50) IU/L Alkaline Phosphatase 56 (38-126) U/L Total Creatine Kinase 57 (55-170) U/L CK-MB (CK-2) TNP CK-MB (CK-2) Rel Index TNP Troponin I < 0.012 (0.01-0.034) ng/mL NT-Pro-B Natriuret Pep (<450) pg/mL Total Protein 7.2 (6.3-8.2) g/dL Albumin 4.5 (3.5-5.0) g/dL Globulin 2.7 (1.7-4.1) g/dL Albumin/Globulin Ratio 1.7 (1.0-2.8) Lipase 153 (23-300) U/L COVID-19 PCR 06/26/19 06/26/19 06/26/19 Range/Units 10:55 10:55 10:55 WBC (4.5-11.0) X10^3/uL RBC (4.5-5.9) X10^6/uL Hgb (13.5-17.5) g/dL Hct (41-53) % MCV (80-100) fL MCH (26-34) PG MCHC (30-36) % RDW (11.6-14.8) % Plt Count (150-400) X10^3/uL Neut % (Auto) (50-75) % Lymph % (Auto) (25-40) % [place] % (Auto) (3-14) % Eos % (Auto) (2-4) % Baso % (Auto) (0-2) % Neut # (Auto) (3392-6318) /uL Lymph # (Auto) (4893-9625) /uL [place] # (Auto) (0-900) /uL Eos # (Auto) (0-450) /uL Baso # (Auto) (0-100) /uL PT (10.1-12.7) SECONDS INR (0.9-1.3) APTT (26.4-36.2) SECONDS D-Dimer 273 H (<230) ng/mL Sodium (137-145) mmol/L Potassium (3.4-5.1) mmol/L Chloride (98-107) mmol/L Carbon Dioxide (22-32) mmol/L BUN (9-20) mg/dL Creatinine (0.66-1.25) mg/dL Estimated GFR (>60) mL/min BUN/Creatinine Ratio (6-22) Glucose (80-110) mg/dL Calcium (8.4-10.2) mg/dL Total Bilirubin (0.2-1.3) mg/dL AST (17-59) IU/L ALT (<50) IU/L Alkaline Phosphatase (38-126) U/L Total Creatine Kinase (55-170) U/L CK-MB (CK-2) CK-MB (CK-2) Rel Index Troponin I (0.01-0.034) ng/mL NT-Pro-B Natriuret Pep 180 (<450) pg/mL Total Protein (6.3-8.2) g/dL Albumin (3.5-5.0) g/dL Globulin (1.7-4.1) g/dL Albumin/Globulin Ratio (1.0-2.8) Lipase (23-300) U/L COVID-19 PCR Cancelled 06/26/19 06/26/19 Range/Units 12:57 13:44 WBC (4.5-11.0) X10^3/uL RBC (4.5-5.9) X10^6/uL Hgb (13.5-17.5) g/dL Hct (41-53) % MCV (80-100) fL MCH (26-34) PG MCHC (30-36) % RDW (11.6-14.8) % Plt Count (150-400) X10^3/uL Neut % (Auto) (50-75) % Lymph % (Auto) (25-40) % [place] % (Auto) (3-14) % Eos % (Auto) (2-4) % Baso % (Auto) (0-2) % Neut # (Auto) (9232-8532) /uL Lymph # (Auto) (3966-8853) /uL [place] # (Auto) (0-900) /uL Eos # (Auto) (0-450) /uL Baso # (Auto) (0-100) /uL PT (10.1-12.7) SECONDS INR (0.9-1.3) APTT (26.4-36.2) SECONDS D-Dimer (<230) ng/mL Sodium (137-145) mmol/L Potassium (3.4-5.1) mmol/L Chloride (98-107) mmol/L Carbon Dioxide (22-32) mmol/L BUN (9-20) mg/dL Creatinine (0.66-1.25) mg/dL Estimated GFR (>60) mL/min BUN/Creatinine Ratio (6-22) Glucose (80-110) mg/dL Calcium (8.4-10.2) mg/dL Total Bilirubin (0.2-1.3) mg/dL AST (17-59) IU/L ALT (<50) IU/L Alkaline Phosphatase (38-126) U/L Total Creatine Kinase (55-170) U/L CK-MB (CK-2) CK-MB (CK-2) Rel Index Troponin I 0.113 H (0.01-0.034) ng/mL NT-Pro-B Natriuret Pep (<450) pg/mL Total Protein (6.3-8.2) g/dL Albumin (3.5-5.0) g/dL Globulin (1.7-4.1) g/dL Albumin/Globulin Ratio (1.0-2.8) Lipase (23-300) U/L COVID-19 PCR Negative [facility] N[facility]I (non-ST elevated myocardial infarction) Discharge Date/Time: 06/26/19 16:37 Prescriptions: No Action atorvastatin [Lipitor] 40 MG tablet 20 mg PO HS Qty: 0 RF: 0 Centrum Silver 0.4-300-250 mg-mcg-mcg Tablet 1 tab PO DAILY Qty: 0 RF: 0 candesartan-hydrochlorothiazid 32 MG/12.5 MG tablet 1 tab PO BEDTIME Qty: 0 RF: 0 levothyroxine 88 MCG tablet 0.088 mg PO QDAY Qty: 0 RF: 0 ferrous sulfate 325 mg (65 mg iron) Tablet 325 mg PO BEDTIME RF: 0 fenofibrate 150 mg Capsule 150 mg PO BEDTIME RF: 0 hydrocodone-acetaminophen 5-325 mg tablet 1 tab PO BID RF: 0
[2019-06-26 11:17] LABS: PTT Partial Thromboplastin Tim 27 SECONDS (26.4-36.2)
--- NOTE | 2019-06-26 11:18 | PC.NURSE ---
Patient states episode at 0900 with hot flash, diaphoresis, and lightheadedness accompanied by chest tightness. All has subsided except the chest tightness. He reports history of DE. Denies any cough or fever. O2 Saturation is 94% and he states in the past he has been told it is low.
[2019-06-26 11:23] LABS: Alanine Aminotransferase 20 IU/L (<50); Albumin 4.5 g/dL (3.5-5.0); Albumin Globulin Ratio 1.7 (1.0-2.8); Alkaline Phosphatase 56 U/L (38-126); Aspartate Aminotransferase 26 IU/L (17-59); BUN Creatinine Ratio 19.4 (6-22); Bilirubin Total 0.6 mg/dL (0.2-1.3); Blood Urea Nitrogen 24 mg/dL (9-20); Calcium 10.1 mg/dL (8.4-10.2); Carbon Dioxide 25 mmol/L (22-32); Chloride 104 mmol/L (98-107); Creatine Kinase 57 U/L (55-170); Estimated Glomerular Filt Rate 56.5 mL/min (>60); Globulin 2.7 g/dL (1.7-4.1); Glucose 149 mg/dL (80-110); HEMOLYSIS < 15 (0-50); Lipase 153 U/L (23-300); Potassium 3.7 mmol/L (3.4-5.1); Sodium 139 mmol/L (137-145); Total Protein 7.2 g/dL (6.3-8.2)
[2019-06-26 11:25] LABS: D Dimer 273 ng/mL (<230)
[2019-06-26 11:32] LABS: NT-proBNP (BNP-Adult 18+) 180 pg/mL (<450)
[2019-06-26 11:34] LABS: Troponin I < 0.012 ng/mL (0.01-0.034)
--- NOTE | 2019-06-26 11:48 | DI.RAD.S_ITS ---
PROCEDURE: XR CHEST 2V INDICATIONS: CHest tightness TECHNIQUE: 2 views of the chest were acquired. COMPARISON: [facility], CR, XR CHEST 1V, 06/26/2019, 10:52. FINDINGS: Surgical changes and devices: None. Lungs and pleura: Mild atelectasis is present at the bilateral lung bases. No focal airspace opacities. No pleural effusions or pneumothorax. Mediastinum: Mediastinal contours are normal. Heart size is normal. There is a large gas and fluid filled hiatal hernia. Bones and chest wall: No suspicious bony abnormalities. Soft tissues appear unremarkable. IMPRESSION: 1. Basilar atelectasis bilaterally. 2. Hiatal hernia. Dictated by: Rosmery Flower M.D. on 06/26/2019 at 12:13 Approved by: Rosmery Flower M.D. on 06/26/2019 at 12:14
[2019-06-26 13:30] LABS: Troponin I 0.113 ng/mL (0.01-0.034)
[2019-06-26] MEDS: HEPARIN DRIP 25,000 UNIT/500 ML IV.SOLN 20 UNIT IV (13:56)
[2019-06-26] MEDS: HEPARIN 5,000 UNIT/ML VIAL 5000 UNIT IV (13:56)
[2019-06-26 14:43] LABS: COVID19 -Nasal RAPID Negative (Negative)
--- NOTE | 2019-06-26 16:16 | PC.NURSE ---
attempted to call report. No answer.
--- NOTE | 2019-06-26 16:41 | PC.NURSE ---
Heparin discontinued for purposes of [facility] Documentation. Drip continued with [facility] transport staff.
== END 2019-06-26 16:37 | disposition short-term general hospital (02) ==
PROVIDERS: Emergency Medicine; Emergency Provider Nurse Practitioner; PCP Student in an Organized Health Care Education/Training Program
DX: I21.4 Non-ST elevation (NSTEMI) myocardial infarction (principal); R79.89 Other specified abnormal findings of blood chemistry; Z79.82 Long term (current) use of aspirin
CPT/HCPCS: 36415; 71045; 71046; 80053; 82550; 83690; 83880; 84484; 85025; 85379; 85610; 85730; 87635; 93005; 96365; 96366; 96375; 99285; J1644

== ENCOUNTER 2019-08-21 19:35 | Emergency (ER) | payer MEDICARE, OTHER, SELFPAY ==
[2019-04-21 12:05] VITALS: BMI 34.5
[2019-08-21] VITALS (18 sets, daily range): BP systolic 124–142; BP diastolic 76–95; PULSE 76–109; RESP 16–32; TEMP 36.8; O2SAT 94–97; BMI 35.5
--- NOTE | 2019-08-21 19:41 | ED_ITS ---
HPI - General Adult General Chief complaint: Dizziness Stated complaint: Blood Pressure Going Crazy Time Seen by Provider: 08/21/19 19:38 Source: patient Mode of arrival: Ambulatory Limitations: no limitations History of Present Illness HPI narrative: 78-year-old male. Known history of coronary artery disease. B ack in June patient was seen here in our department and transferred for a non ST- elevation [place]. Eventually ended up having a coronary artery bypass graft. Here for evaluation of 2 episodes today where he stated he had lightheadedness. Stated that it was not the room spinning sensation but felt like he was very unsteady. Did have a small amount of chest pain and shortness of breath at that time. He stated that was a fairly sudden onset. The 1st episode lasted approximately 2-3 minutes and then resolved on its own. The 2nd episode lasted approximately 5 minutes and again resolved on its own. He does have a pulse oximeter and a blood pressure cuff at home. He states that during these events his heart rate was in the low 100s and his blood pressure had a systolic less than 100. Denies any other associated symptoms. Related Data Home Medications Medication Instructions Recorded Confirmed Centrum Silver 1 tab PO DAILY #0 09/25/12 08/21/19 atorvastatin [Lipitor] 20 mg PO HS #0 09/25/12 08/21/19 levothyroxine 0.088 mg PO QDAY #0 09/10/16 08/21/19 fenofibrate 150 mg PO BEDTIME 04/14/19 08/21/19 ferrous sulfate 325 mg PO BEDTIME 04/14/19 08/21/19 aspirin 81 mg PO DAILY 08/10/19 08/21/19 hydroxyzine HCl 25 mg PO BEDTIME PRN 08/10/19 08/21/19 metoprolol tartrate 25 mg PO BID 08/21/19 08/21/19 Allergies Allergy/AdvReac Type Severity Reaction Status Date / Time adhesive tape Allergy Intermediate Rash Verified 06/26/19 10:36 Review of Systems Constitutional Constitutional: Denies fatigue, Denies fever(s) and Denies headache(s) Eyes Eyes: Denies change in vision and Denies loss of vision ENT Ears, Nose, Mouth, and Throat: Denies vertigo, Reports dizziness, Denies headache(s) and Reports disequilibrium Cardiovascular Cardiovascular: Reports chest pain, Reports rapid heart rate, Denies irregular heart rhythm and Reports dyspnea Respiratory Respiratory: Denies cough and Reports dyspnea Gastrointestinal Gastrointestinal: Denies abdominal pain, Denies change in bowel habits, Denies diarrhea and Denies nausea Genitourinary Genitourinary: Reports system reviewed and no additional complaints, except as documented Musculoskeletal Musculoskeletal: Denies arthralgias, Denies myalgias, Denies numbness and Denies tingling Integumentary/Breasts Skin/Breast: Denies lesions and Denies rash Neurologic Neurologic: Denies behavioral changes, Denies confusion, Denies vertigo, Reports dizziness, Denies headache(s), Denies loss of vision, Denies numbness, Denies seizure-like activity, Denies tingling and Reports disequilibrium Psychiatric Psychiatric: Denies behavioral changes and Denies confusion Endocrine Endocrine: Denies fatigue Hematologic/Lymphatic Hematologic/Lymphatic: Denies easy bleeding and Denies easy bruising Comments: Not on anticoagulation Allergic/Immunologic Allergic/Immunologic: Denies urticaria Patient History Medical History Back pain (Acute) Coronary artery disease (Acute) Elevated cholesterol (Acute) Former smoker (Acute) [place] (hard of hearing) (Acute) Hypothyroid (Acute) Left leg swelling (Acute) Lymphoma (Acute ~02/2016) Myocardial infarction (Acute ~12/2004) Numbness (Acute) RBBB (right bundle branch block) (Acute) RLS (restless legs syndrome) (Acute) Sciatica (Acute) Surgical History History of colonoscopy (Acute) History of heart artery stent (Acute ~12/2004) History of lumbar fusion (Acute 07/24/18) Hx of bilateral cataract extraction (Acute ~02/2019) Hx of tonsillectomy (Acute) Social History household members: spouse Smoking Status: Former smoker Tobacco: How many years used: 8 alcohol intake: former Smoking Status: Former smoker alcohol intake frequency: 0-2 drinks per day Substance Use Type: does not use Exam Initial Vital Signs Initial Vital Signs: Vital Signs Temperature 98.2 F 08/21/19 19:42 Pulse Rate 109 H 08/21/19 19:42 Respiratory Rate 26 H 08/21/19 19:42 Blood Pressure 142/95 H 08/21/19 19:42 Pulse Oximetry 96 08/21/19 19:42 Const General: cooperative, comfortable and well developed Limitations: mental status not altered HENME Head: normal to inspection and normocephalic Eyes General: appearance normal, both eyes and all related structures Chest Chest: No crepitus and No tenderness Other: Midline surgical scar consistent with history of coronary artery bypass graft appears well Resp Effort & Inspection: normal respiratory effort Auscultation: clear to auscultation bilaterally Cardio Rate: regular rate Rhythm: regular rhythm GI Inspection: non-distended Palpation: soft Skin Lesions: no lesions Rashes: no rashes Neuro General: patient alert, patient awake and patient oriented x3 Cognition: normal cognition Speech: speech normal Extrem General: normal to inspection, capillary refill normal and edema Psych Appearance: grossly normal and well kempt Scores GCS [place] coma scale eye opening: Spontaneous Mer[place] coma scale verbal response: Orientated [place] coma scale motor response: Obey commands [place] coma scale total score: 15 Course Orders Ordered: ED Orders 08/21/19 19:42 EKG-12 Lead Routine 08/21/19 19:49 Complete Blood Count AUTO DIFF Stat Comprehensive Metabolic Panel Stat Lipase Stat Partial Thromboplastin Time Stat Prothrombin Time INR Stat Troponin I Stat 08/21/19 21:07 EKG-12 Lead Stat Discontinued Medications Amiodarone HCl (Pacerone) 150 mg IV NOW ONE Stop: 08/21/19 20:39 Last Admin: 08/21/19 20:48 Dose: Not Given Documented by: ANASTASIA Amiodarone HCl/Dextrose (Nexterone) 150 mg in 100 mls @ 600 mls/hr IV NOW ONE; Protocol Stop: 08/21/19 20:52 Last Infusion: 08/21/19 21:05 Dose: 0 mls/hr Documented by: Admin: 08/21/19 20:47 Dose: 600 mls/hr Documented by: ANASTASIA Metoprolol Tartrate (Lopressor) 25 mg PO NOW Stop: 08/21/19 21:31 Last Admin: 08/21/19 21:37 Dose: 25 mg Documented by: BEATRIZ Vital Signs Vital signs: Vital Signs - 8 hr 08/21/19 19:42 08/21/19 20:05 08/21/19 20:15 Temperature 98.2 F Pulse Rate 109 H 101 H 101 H Respiratory Rate 26 H 21 32 H Blood Pressure 142/95 H 127/82 Pulse Oximetry 96 94 94 08/21/19 20:17 08/21/19 20:30 08/21/19 20:45 Temperature Pulse Rate 101 H 102 H 100 H Respiratory Rate 32 H 18 18 Blood Pressure 132/79 124/76 130/76 Pulse Oximetry 96 94 95 08/21/19 21:00 08/21/19 21:15 08/21/19 21:30 Temperature Pulse Rate 97 H 93 H 91 H Respiratory Rate 23 17 19 Blood Pressure 130/77 130/80 130/85 Pulse Oximetry 95 96 96 08/21/19 21:45 08/21/19 21:46 08/21/19 22:00 Temperature Pulse Rate 91 H 91 H 92 H Respiratory Rate 29 H 30 H 22 Blood Pressure 140/94 H 135/87 Pulse Oximetry 97 96 96 08/21/19 22:16 08/21/19 22:30 08/21/19 22:45 Temperature Pulse Rate 87 80 78 Respiratory Rate 26 H 19 16 Blood Pressure 140/80 131/79 132/81 Pulse Oximetry 96 97 97 08/21/19 23:00 08/21/19 23:15 08/21/19 23:30 Temperature Pulse Rate 79 80 76 Respiratory Rate 17 20 28 H Blood Pressure 128/83 133/77 128/79 Pulse Oximetry 97 96 97 Medical Decision Making Medical Records Medical records reviewed: Yes I reviewed the patient's medical records. Lab Data Lab results reviewed: Yes I reviewed the patient's lab results. Result diagrams: 08/21/19 19:49 08/21/19 19:49 Labs: Lab Results 08/21/19 08/21/19 08/21/19 Range/Units 19:49 19:49 19:49 WBC 6.2 (4.5-11.0) X10^3/uL RBC 4.66 (4.5-5.9) X10^6/uL Hgb 14.6 (13.5-17.5) g/dL Hct 42.3 (41-53) % MCV 90.9 (80-100) fL MCH 31.2 (26-34) PG MCHC 34.4 (30-36) % RDW 13.8 (11.6-14.8) % Plt Count 196 (150-400) X10^3/uL Neut % (Auto) 61.7 (50-75) % Lymph % (Auto) 23.6 L (25-40) % Tripp % (Auto) 9.3 (3-14) % Eos % (Auto) 4.7 H (2-4) % Baso % (Auto) 0.7 (0-2) % Neut # (Auto) 3800 (7225-7618) /uL Lymph # (Auto) 1500 (5171-9138) /uL Tripp # (Auto) 600 (0-900) /uL Eos # (Auto) 300 (0-450) /uL Baso # (Auto) 0 (0-100) /uL PT 11.6 (10.1-12.7) SECONDS INR 1.0 (0.9-1.3) APTT 30 D (26.4-36.2) SECONDS Sodium 140 (137-145) mmol/L Potassium 4.0 (3.4-5.1) mmol/L Chloride 109 H (98-107) mmol/L Carbon Dioxide 24 (22-32) mmol/L BUN 20 (9-20) mg/dL Creatinine 0.96 (0.66-1.25) mg/dL Estimated GFR > 60.0 (>60) mL/min BUN/Creatinine Ratio 20.8 (6-22) Glucose 160 H (80-110) mg/dL Calcium 9.9 (8.4-10.2) mg/dL Total Bilirubin 0.8 (0.2-1.3) mg/dL AST 64 H (17-59) IU/L ALT 33 (<50) IU/L Alkaline Phosphatase 95 (38-126) U/L Troponin I < 0.012 (0.01-0.034) ng/mL Total Protein 7.3 (6.3-8.2) g/dL Albumin 4.3 (3.5-5.0) g/dL Globulin 3.0 (1.7-4.1) g/dL Albumin/Globulin Ratio 1.4 (1.0-2.8) Lipase 201 (23-300) U/L COVID-19 PCR (Negative) 08/21/19 Range/Units 21:45 WBC (4.5-11.0) X10^3/uL RBC (4.5-5.9) X10^6/uL Hgb (13.5-17.5) g/dL Hct (41-53) % MCV (80-100) fL MCH (26-34) PG MCHC (30-36) % RDW (11.6-14.8) % Plt Count (150-400) X10^3/uL Neut % (Auto) (50-75) % Lymph % (Auto) (25-40) % Tripp % (Auto) (3-14) % Eos % (Auto) (2-4) % Baso % (Auto) (0-2) % Neut # (Auto) (5037-9415) /uL Lymph # (Auto) (9421-5762) /uL Tripp # (Auto) (0-900) /uL Eos # (Auto) (0-450) /uL Baso # (Auto) (0-100) /uL PT (10.1-12.7) SECONDS INR (0.9-1.3) APTT (26.4-36.2) SECONDS Sodium (137-145) mmol/L Potassium (3.4-5.1) mmol/L Chloride (98-107) mmol/L Carbon Dioxide (22-32) mmol/L BUN (9-20) mg/dL Creatinine (0.66-1.25) mg/dL Estimated GFR (>60) mL/min BUN/Creatinine Ratio (6-22) Glucose (80-110) mg/dL Calcium (8.4-10.2) mg/dL Total Bilirubin (0.2-1.3) mg/dL AST (17-59) IU/L ALT (<50) IU/L Alkaline Phosphatase (38-126) U/L Troponin I (0.01-0.034) ng/mL Total Protein (6.3-8.2) g/dL Albumin (3.5-5.0) g/dL Globulin (1.7-4.1) g/dL Albumin/Globulin Ratio (1.0-2.8) Lipase (23-300) U/L COVID-19 PCR Negative (Negative) ECG Data Attestation: I personally reviewed and interpreted this ECG as follows: Prior ECG tracings: not available for review Interpretation: Arrival EKG sinus tachycardia Ventricular rate of 106 First-degree AV block p.r. interval 241 milliseconds Right bundle-branch block Repeat EKG Sinus rhythm with marked sinus arrhythmia First degree AV block P.r. interval 264 milliseconds Ventricular rate 89 Right bundle-branch block MDM Narrative Medical decision making narrative: Patient's last episode occurred just prior to arrival here in the ER. During my initial evaluation of the patient he had a 3-5 second run of ventricular tachycardia. Immediately afterwards patient states that he became very lightheaded. He states that the symptoms that he fell during this episode was what he felt like at home only at home it lasted longer than it did here in the ER. The short time frame of the tachycardia did not allow us to obtain a blood pressure. He did not pass out. Patient was given 150 mg of amiodarone. Discussed the case with Dr. Luo who is on-call for cardiology who recommended given the patient a dose of metoprolol. He did not recommend continuing with the amiodarone infusion. After the run of ventricular tachycardia he had occasional PVCs but no additional issues. Dr. velazco did recommend observation. I discussed the case with Dr. Stephens hospitalist who will accept the patient in transfer. Discussed the transfer with the patient. He expressed understanding and agreement. Patient is stable for transfer. Critical Care Time Critical Care Time Critical Care Time: Yes Total Critical Care Time: 35 Attestation: The high probability of a clinically significant, sudden or life threatening deterioration of the cardiovascular system(s) required my full and direct attention, intervention and personal management. The aggregate critical care time was 35 minutes. This time is in addition to time spent performing reported procedures but includes the following: [] Data Review and interpretation [] Patient assessment and monitoring of vital signs [] Documentation [] Medication orders and management Discharge Plan Departure Patient Disposition: [facility] Clinical Impression: Ventricular tachycardia Prescriptions: No Action atorvastatin [Lipitor] 40 MG tablet 20 mg PO HS Qty: 0 RF: 0 Centrum Silver 0.4-300-250 mg-mcg-mcg Tablet 1 tab PO DAILY Qty: 0 RF: 0 levothyroxine 88 MCG tablet 0.088 mg PO QDAY Qty: 0 RF: 0 aspirin 81 mg Tablet,Chewable 81 mg PO DAILY RF: 0 hydroxyzine HCl 25 mg Tablet 25 mg PO BEDTIME PRN (Reason: Insomnia) RF: 0 ferrous sulfate 325 mg (65 mg iron) Tablet 325 mg PO BEDTIME RF: 0 fenofibrate 150 mg Capsule 150 mg PO BEDTIME RF: 0 metoprolol tartrate 25 mg tablet 25 mg PO BID RF: 0 Referrals: Linda Goldman MD [Primary Care Provider] -
[2019-08-21 20:07] LABS: Add Manual Diff / Slide Review NO; Basophils Absolute Auto 0 /uL (0-100); Basophils Percent Auto 0.7 % (0-2); Eosinophils Absolute Auto 300 /uL (0-450); Eosinophils Percent Auto 4.7 % (2-4); Hematocrit 42.3 % (41-53); Hemoglobin 14.6 g/dL (13.5-17.5); Lymphocytes Absolute Auto 1500 /uL (1100-4500); Lymphocytes Percent Auto 23.6 % (25-40); Mean Corpuscular HGB Conc 34.4 % (30-36); Mean Corpuscular Hemoglobin 31.2 PG (26-34); Mean Corpuscular Volume 90.9 fL (80-100); Monocytes Absolute Auto 600 /uL (0-900); Monocytes Percent Auto 9.3 % (3-14); Neutrophils Absolute Auto 3800 /uL (1500-7000); Neutrophils Percent Auto 61.7 % (50-75); Platelet Count 196 X10^3/uL (150-400); Red Blood Cell Count 4.66 X10^6/uL (4.5-5.9); Red Cell Distribution Width 13.8 % (11.6-14.8); White Blood Cell Count 6.2 X10^3/uL (4.5-11.0)
[2019-08-21 20:09] LABS: Prothrombin Time 11.6 SECONDS (10.1-12.7)
[2019-08-21 20:11] LABS: PTT Partial Thromboplastin Tim 30 SECONDS (26.4-36.2)
[2019-08-21 20:13] LABS: Alanine Aminotransferase 33 IU/L (<50); Albumin 4.3 g/dL (3.5-5.0); Albumin Globulin Ratio 1.4 (1.0-2.8); Alkaline Phosphatase 95 U/L (38-126); Aspartate Aminotransferase 64 IU/L (17-59); BUN Creatinine Ratio 20.8 (6-22); Bilirubin Total 0.8 mg/dL (0.2-1.3); Blood Urea Nitrogen 20 mg/dL (9-20); Calcium 9.9 mg/dL (8.4-10.2); Carbon Dioxide 24 mmol/L (22-32); Chloride 109 mmol/L (98-107); Estimated Glomerular Filt Rate > 60.0 mL/min (>60); Glucose 160 mg/dL (80-110); HEMOLYSIS < 15 (0-50); Lipase 201 U/L (23-300); Sodium 140 mmol/L (137-145); Total Protein 7.3 g/dL (6.3-8.2)
--- NOTE | 2019-08-21 20:21 | PC.NURSE ---
Pt had a 7 second run of vtach
[2019-08-21 20:24] LABS: Troponin I < 0.012 ng/mL (0.01-0.034)
[2019-08-21] MEDS: AMIODARONE 150 MG/100 ML PIGGYBACK 600 MG IV (20:47)
[2019-08-21] MEDS: METOPROLOL IR 25 MG TABLET PO (21:37)
[2019-08-21 22:46] LABS: COVID19 -Nasal RAPID Negative (Negative)
== END 2019-08-22 00:22 | disposition short-term general hospital (02) ==
PROVIDERS: Emergency Provider Emergency Medicine; PCP Student in an Organized Health Care Education/Training Program
DX: I47.2 Ventricular tachycardia (principal); I25.10 Atherosclerotic heart disease of native coronary artery without angina pectoris; R07.9 Chest pain, unspecified
CPT/HCPCS: 36415; 80053; 83690; 84484; 85025; 85610; 85730; 87635; 93005; 93010; 96365; 99285; 99291; 99292; J0282

== ENCOUNTER → 2019-10-26 10:09 | Outpatient (CLI) | payer MEDICARE, OTHER, SELFPAY ==
[2019-04-21 12:05] VITALS: BMI 34.5
--- NOTE | 2019-10-26 10:11 | DI.CT.S_ITS ---
PROCEDURE: CT CHEST ABD PEL W CON INDICATIONS: f/u lymphoma TECHNIQUE: After the administration of oral and intravenous contrast, 5 mm thick sections acquired from the lung apices to the symphysis. 5 mm coronal and sagittal reformats were performed, with additional 7 mm coronal MIP reformats through the lungs. For radiation dose reduction, the following was used: automated exposure control, adjustment of mA and/or kV according to patient size. COMPARISON: [facility], CT, CT CHEST ABD PEL W CON, 09/04/2017, 10:14. [facility], CT, CT CHEST ABD PEL W CON, 02/25/2018, 10:25. FINDINGS: Image quality: Excellent. CHEST: Scattered subsegmental atelectasis and/or scarring. No focal consolidation. Central and peripheral airways appear patent and normal in caliber. Mediastinum: Heart size is normal. Coronary artery calcifications are present. No pericardial effusion. No mediastinal or hilar adenopathy by size criteria. Thoracic aorta and central pulmonary arteries are normal in size. Moderate hiatal hernia. Chest wall: No axillary or supraclavicular adenopathy by size criteria. Thyroid gland negative . ABDOMEN: Hepatic steatosis. Subcentimeter hepatic foci are statistically cysts or hemangiomas, although technically too small to characterize accurately and therefore nonspecific. Gallbladder negative . Biliary system is non dilated. Pancreas enhances normally. Spleen is normal in size and enhancement. No adrenal nodules. No hydronephrosis, grossly unchanged appearance of right ureteropelvic junction stenosis, versus large parapelvic cyst. Peritoneum and bowel: Bowel loops demonstrate normal wall thickness and caliber. No free fluid or air. Colonic diverticulosis is seen without evidence of acute complication. Nodes and vessels: No retroperitoneal or mesenteric adenopathy by size criteria. Aorta and inferior vena cava are normal in size. Miscellaneous: No ventral hernias. PELVIS: Bladder unremarkable. Prostate appears enlarged. Miscellaneous: No inguinal hernias or adenopathy. Bones: No vertebral body compression fracture. Spondylytic changes and facet arthropathy. Lumbar posterior spinal fixation hardware. IMPRESSION: No pathologically enlarged lymphadenopathy identified. Grossly stable examination. Additional chronic and incidental findings as above. Dictated by: Gerard Snyder M.D. on 10/26/2019 at 15:08 Approved by: Gerard Snyder M.D. on 10/26/2019 at 15:16
== END ==
PROVIDERS: PCP Student in an Organized Health Care Education/Training Program; Referring Provider Internal Medicine; Visit Provider Internal Medicine
DX: Z08 Encounter for follow-up examination after completed treatment for malignant neoplasm (principal); Z85.72 Personal history of non-Hodgkin lymphomas; I25.10 Atherosclerotic heart disease of native coronary artery without angina pectoris; K44.9 Diaphragmatic hernia without obstruction or gangrene; K76.0 Fatty (change of) liver, not elsewhere classified; K57.90 Diverticulosis of intestine, part unspecified, without perforation or abscess without bleeding
CPT/HCPCS: 71260; 74177; Q9967

== ENCOUNTER → 2020-04-27 07:28 | Outpatient (CLI) | payer MEDICARE, OTHER, SELFPAY ==
[2019-04-21 12:05] VITALS: BMI 34.5
[2020-04-27 08:28] LABS: Add Manual Diff / Slide Review NO; Basophils Absolute Auto 0 /uL (0-100); Basophils Percent Auto 0.8 % (0-2); Eosinophils Absolute Auto 200 /uL (0-450); Eosinophils Percent Auto 4.6 % (2-4); Hematocrit 45.9 % (41-53); Hemoglobin 15.9 g/dL (13.5-17.5); Lymphocytes Absolute Auto 1100 /uL (1100-4500); Lymphocytes Percent Auto 25.4 % (25-40); Mean Corpuscular HGB Conc 34.7 % (30-36); Mean Corpuscular Hemoglobin 31.9 PG (26-34); Monocytes Absolute Auto 400 /uL (0-900); Monocytes Percent Auto 9.6 % (3-14); Neutrophils Absolute Auto 2700 /uL (1500-7000); Neutrophils Percent Auto 59.6 % (50-75); Platelet Count 183 X10^3/uL (150-400); Red Blood Cell Count 4.99 X10^6/uL (4.5-5.9); Red Cell Distribution Width 13.1 % (11.6-14.8); White Blood Cell Count 4.5 X10^3/uL (4.5-11.0)
[2020-04-27 08:41] LABS: Cholesterol 131 mg/dL (140-199); HDL Cholesterol 43 mg/dL (40-60); LDL Cholesterol Calculated 66 mg/dL (<100); Triglycerides 110 mg/dL (35-150)
[2020-04-27 08:43] LABS: Alanine Aminotransferase 21 IU/L (<50); Albumin 4.2 g/dL (3.5-5.0); Albumin Globulin Ratio 1.6 (1.0-2.8); Alkaline Phosphatase 51 U/L (38-126); Aspartate Aminotransferase 29 IU/L (17-59); BUN Creatinine Ratio 16.2 (6-22); Bilirubin Total 0.8 mg/dL (0.2-1.3); Blood Urea Nitrogen 16 mg/dL (9-20); Calcium 9.8 mg/dL (8.4-10.2); Carbon Dioxide 28 mmol/L (22-32); Chloride 106 mmol/L (98-107); Estimated Glomerular Filt Rate > 60.0 mL/min (>60); Globulin 2.6 g/dL (1.7-4.1); Glucose 96 mg/dL (80-110); HEMOLYSIS < 15 (0-50); Potassium 4.1 mmol/L (3.4-5.1); Sodium 139 mmol/L (137-145); Total Protein 6.8 g/dL (6.3-8.2)
[2020-04-27 08:50] LABS: Hemoglobin A1C% w Est Avg Glu 5.1 % (4.0-6.0)
[2020-04-27 09:06] LABS: Lactate Dehydrogenase 422 U/L (313-618)
[2020-04-27 10:02] LABS: Thyroid Stimulating Hormone 3.64 uIU/mL (0.47-4.68)
== END ==
PROVIDERS: Internal Medicine; PCP Student in an Organized Health Care Education/Training Program; Referring Provider Student in an Organized Health Care Education/Training Program; Visit Provider Student in an Organized Health Care Education/Training Program
DX: C83.30 Diffuse large B-cell lymphoma, unspecified site (principal); I10 Essential (primary) hypertension; E66.9 Obesity, unspecified; I25.2 Old myocardial infarction; E78.5 Hyperlipidemia, unspecified; E03.9 Hypothyroidism, unspecified; R60.9 Edema, unspecified; M10.9 Gout, unspecified
CPT/HCPCS: 36415; 80053; 80061; 83036; 83615; 84443; 85025